=== PATIENT | female | born 1935 | race Caucasian/White ===

== ENCOUNTER 2017-06-15 00:10 | Emergency (ER) | payer MEDICARE, BC ==
[2017-06-15 02:14] LABS: ALANINE AMINOTRANSFERASE 24 U/L (9-52); ALBUMIN 3.9 g/dL (3.5-5.0); ALKALINE PHOSPHATASE 98 U/L (38-126); ANION GAP 13 (5-19); ASPARTATE AMINO TRANSFERASE 19 U/L (14-36); BILIRUBIN,DIRECT 0.2 mg/dL (0.0-0.4); BILIRUBIN,TOTAL 0.6 mg/dL (0.2-1.3); BLOOD UREA NITROGEN 14 mg/dL (7-20); CALCIUM 9.4 mg/dL (8.4-10.2); CARBON DIOXIDE 27 mmol/L (22-30); CHLORIDE 102 mmol/L (98-107); CREATININE RESULT 0.69 mg/dL (0.52-1.25); GLUCOSE 105 mg/dL (75-110); LIPASE 133.5 U/L (23-300); POTASSIUM 3.9 mmol/L (3.6-5.0); TOTAL PROTEIN 6.7 g/dL (6.3-8.2)
[2017-06-15 02:18] LABS: ABSOLUTE BASOPHILS # (AUTO) 0.1 10^3/uL (0.0-0.2); ABSOLUTE EOSINOPHILS # (AUTO) 0.3 10^3/uL (0.0-0.6); ABSOLUTE LYMPHOCYTES (AUTO) 2.1 10^3/uL (0.5-4.7); ABSOLUTE MONOCYTES (AUTO) 0.6 10^3/uL (0.1-1.4); ABSOLUTE NEUT (AUTO) 4.6 10^3/uL (1.7-8.2); BASOPHILS % (AUTO) 0.7 % (0-2); EOSINOPHILS % (AUTO) 3.5 % (0-6); HEMATOCRIT 41.9 % (36.0-47.0); HEMOGLOBIN 14.8 g/dL (12.0-15.5); HGB HCT DIFFERENCE 2.5; LYMPHOCYTES % (AUTO) 27.3 % (13-45); MEAN CORPUSCULAR HEMOGLOBIN 31.5 pg (27.0-33.4); MEAN CORPUSCULAR HGB CONC 35.2 g/dL (32.0-36.0); MEAN CORPUSCULAR VOLUME 90 fl (80-97); MONOCYTES % (AUTO) 7.9 % (3-13); RED BLOOD COUNT 4.69 10^6/uL (3.72-5.28); RED CELL DISTRIBUTION WIDTH 13.1 % (11.5-14.0); SEGMENTED NEUTROPHILS % (AUTO) 60.6 % (42-78); WHITE BLOOD COUNT 7.5 10^3/uL (4.0-10.5)
[2017-06-15 02:29] LABS: APPEARANCE,URINE SLIGHTLY-CLOUDY; BILIRUBIN,URINE NEGATIVE (NEGATIVE); GLUCOSE, URINE NEGATIVE (NEGATIVE); KETONES,URINE NEGATIVE (NEGATIVE); LEUKOCYTE ESTERASE,URINE MODERATE (NEGATIVE); NITRITE,URINE NEGATIVE (NEGATIVE); PROTEIN,URINE NEGATIVE (NEGATIVE); URINE SPECIFIC GRAVITY 1.012; UROBILINOGEN,URINE NEGATIVE mg/dL (<2.0)
--- NOTE | 2017-06-15 03:07 | ER Document Report ---
ED GI/ - General Chief Complaint: Abdominal Pain Stated Complaint: ABDOMINAL PAIN Time Seen by Provider: 06/15/17 02:27 Notes: Patient is an 82-year-old female comes emergency department for chief complaint of pain in her abdomen on the left side, symptoms started earlier today, she states the pain has become constant. She denies nausea, vomiting, dysuria, flank pain, injury. She is here with her family members. She has had a hysterectomy and sees partial), cholecystectomy, hip surgeries. TRAVEL OUTSIDE OF THE [place] IN LAST 30 DAYS: No - Related Data Allergies/Adverse Reactions: Iodinated Contrast- Oral and IV Dye Allergy (Severe, Verified 07/28/16 15:13) Angioedema metformin [Metformin] Allergy (Severe, Verified 07/28/16 15:13) Diarrhea Utfegyv-Tvo-Vzo Reductase Inhibitor Adverse Reaction (Intermediate, Verified 10/13 08:17) Stiffness in joints Past Medical History - General Information source: Patient, Relative - Social History Smoking Status: Never Smoker Frequency of alcohol use: None Drug Abuse: None Lives with: Family Family History: Reviewed & Not Pertinent, Other Patient has suicidal ideation: No Patient has homicidal ideation: No - Past Medical History Cardiac Medical History: Reports: Hx Congestive Heart Failure, Hx Coronary Artery Disease, Hx DVT - 1997, Hx Hypertension Denies: Hx Pulmonary Embolism Pulmonary Medical History: Denies: Hx Asthma, Hx COPD Neurological Medical History: Denies: Hx Seizures Endocrine Medical History: Reports: Hx Hypothyroidism. Denies: Hx Diabetes Mellitus Type 1, Hx Diabetes Mellitus Type 2, Hx Hyperthyroidism Renal/ Medical History: Denies: Hx Peritoneal Dialysis GI Medical History: Denies: Hx Cirrhosis, Hx Gastroesophageal Reflux Disease, Hx Hepatitis Musculoskeltal Medical History: Reports Hx Arthritis Skin Medical History: Denies Hx Eczema, Denies Hx Psoriasis Psychiatric Medical History: Denies: Hx Depression Infectious Medical History: Denies: Hx Hepatitis Past Surgical History: Reports: Hx Cardiac Catheterization - x4-5 years ago- [place] and "recently" @ [facility], Hx Cholecystectomy, Hx Coronary Artery Bypass Graft - March 2015, [facility], Hx Coronary Stent - 4 total; last March 2015, around the time of her 3 vessel cabg, Hx Hysterectomy, Hx Orthopedic Surgery - bilat hip replacement - Immunizations Hx Diphtheria, Pertussis, Tetanus Vaccination: Yes Hx Pneumococcal Vaccination: 08/28/10 Review of Systems - Review of Systems Constitutional: No symptoms reported EENT: No symptoms reported Cardiovascular: No symptoms reported Respiratory: No symptoms reported Gastrointestinal: See HPI Genitourinary: No symptoms reported Female Genitourinary: No symptoms reported Musculoskeletal: No symptoms reported Skin: No symptoms reported Hematologic/Lymphatic: No symptoms reported Neurological/Psychological: No symptoms reported Physical Exam - Vital signs Vitals: Temp Pulse Resp BP Pulse Ox 97.9 F 57 L 20 153/73 H 97 06/15/17 00:13 06/15/17 00:13 06/15/17 00:13 06/15/17 00:13 06/15/17 00:13 Interpretation: Normal - General General appearance: Appears well, Alert In distress: None - HEENT Head: Normocephalic, Atraumatic Eyes: Normal Pupils: PERRL - Respiratory Respiratory status: No respiratory distress Chest status: Nontender Breath sounds: Normal Chest palpation: Normal - Cardiovascular Rhythm: Regular Heart sounds: Normal auscultation, S1 appreciated, S2 appreciated Murmur: Yes - Abdominal Inspection: Normal Distension: No distension Bowel sounds: Normal Tenderness: Tender - Patient specifically tender in the left lower quadrant which is reproducible, no guarding, no rigidity, no rebound tenderness, otherwise unremarkable abdomen Organomegaly: No organomegaly - Back Back: Normal, Nontender - Extremities General upper extremity: Normal inspection, Nontender, Normal color, Normal ROM , Normal temperature General lower extremity: Normal inspection, Nontender, Normal color, Normal ROM , Normal temperature, Normal weight bearing. No: Mirta's sign - Neurological Neuro grossly intact: Yes Cognition: Normal Orientation: AAOx4 [place] Coma Scale Eye Opening: Spontaneous Nolan Coma Scale Verbal: Oriented Nolan Coma Scale Motor: Obeys Commands Nolan Coma Scale Total: 15 Speech: Normal Motor strength normal: LUE, RUE, LLE, RLE Sensory: Normal - Psychological Associated symptoms: Normal affect, Normal mood - Skin Skin Temperature: Warm Skin Moisture: Dry Skin Color: Normal Course - Re-evaluation Re-evalutation: Patient does have mild left lower quadrant tenderness on examination although she is nontoxic in appearance, well-appearing, unremarkable vital signs, unremarkable physical exam otherwise. CBC unremarkable, chemistry unremarkable , urinalysis shows moderate leukocyte esterase with a few white blood cells but is otherwise unremarkable. Patient's presentation is suggestive of diverticulitis, CAT scan was performed to rule out abscess, perforation, or other etiology, unfortunately patient is allergic to all contrast so these could not be used. Incidental finding of right ovarian abnormality which has progressed, I discussed this with patient and family in detail, patient will be placed on treatment for suspected early diverticulitis, discussed treatment for this, follow-up for this, and return precautions for this in detail. Patient and family state understanding and agreement. - Vital Signs Vital signs: Temp Pulse Resp BP Pulse Ox 98.0 F 62 18 134/76 H 99 06/15/17 04:34 06/15/17 04:34 06/15/17 04:34 06/15/17 04:34 06/15/17 04:34 - Laboratory Result Diagrams: 06/15/17 01:50 06/15/17 01:50 Laboratory results interpreted by me: 06/15/17 02:05 Ur Leukocyte Esterase MODERATE H Discharge - Discharge Clinical Impression: Left lower quadrant pain Condition: Stable Disposition: HOME, SELF-CARE Additional Instructions: Your examination and location of pain are consistent with diverticulitis, take the antibiotics as prescribed, take the Mcdermott if needed for pain, if you do take this also take the Colace stool softener to avoid constipation. Please follow-up in the next few days with your primary care provider for recheck. Return to the emergency department if you worsen in anyway including vomiting, fever, bloody stools, increased pain, etc. Your CAT scan incidentally also shows increase in size of an irregular possible mass at the right ovary area, please follow-up very closely with the [facility] for additional management, this could be cancer and delay in follow-up could result in a metastasis (spread). See referral listed. Prescriptions: Ciprofloxacin HCl [Cipro 500 mg Tablet] 500 mg PO BID #14 tablet Docusate Sodium [Colace 100 mg Capsule] 100 mg PO DAILY #30 capsule Hydrocodone/Acetaminophen [Mcdermott 5-325 mg Tablet] 0.5 - 1 tab PO ASDIR #12 tablet Metronidazole [Flagyl 500 mg Tablet] 500 mg PO TID #21 tablet Referrals: JOHN VANESSA MD [Primary Care Provider] - Follow up as needed
--- NOTE | 2017-06-15 03:30 | RADIOLOGY REPORT (SQ) ---
EXAM DESCRIPTION: CT ABD/PELVIS NO ORAL OR IV COMPLETED DATE/TIME: 06/15/2017 3:11 am REASON FOR STUDY: LLQ pain COMPARISON: CT abdomen and pelvis 08/24/2011, 01/26/2009. MRI abdomen 06/09/2011. TECHNIQUE: CT scan of the abdomen and pelvis performed without intravenous or oral contrast. Images reviewed with lung, soft tissue, and bone windows. Reconstructed coronal and sagittal MPR images revi ewed. All images stored on PACS. All CT scanners at this facility use dose modulation, iterative reconstruction, and/or weight based d osing when appropriate to reduce radiation dose to as low as reasonably achievable (ALARA). [facility]: Dose Right [facility]: CareDose [facility]: Dose Right [facility]: Teradose 4D [facility]: Smart Technologies RADIATION DOSE: Up-to-date CT equipment and radiation dose reduction techniques were employed. CTDIv ol: 25.5 mGy. DLP: 1250 mGy-cm.mGy. LIMITATIONS: Streak artifact from the bilateral hip prosthesis. FINDINGS: LOWER CHEST: Mild bibasilar atelectasis. The patient is status post open heart surgery. NON-CONTRASTED LIVER, SPLEEN, ADRENALS: Evaluation limited by lack of IV contrast. No identified sign ificant masses. Redemonstration of coarse calcifications at the periphery of the right hepatic lobe. PANCREAS: No peripancreatic inflammatory changes. GALLBLADDER: Surgically absent. RIGHT KIDNEY AND URETER: No significant calcifications. No hydronephrosis or hydroureter. LEFT KIDNEY AND URETER: No significant calcifications. No hydronephrosis or hydroureter. AORTA AND RETROPERITONEUM: Atherosclerotic calcifications within the abdominal aorta and its branches . No abdominal aortic aneurysm. No retroperitoneal masses or hemorrhage. BOWEL AND PERITONEAL CAVITY: No dilated bowel loops or focal inflammatory changes. No free fluid or free air. APPENDIX: Not visualized. PELVIS, BLADDER, AND ABDOMINAL WALL:The pelvis is partially obscured by streak artifact from the bila teral hip prosthesis. The urinary bladder is decompressed. Cystic lesion at the right adnexa is cindy suring 5.3 x 3.5 cm, previously measured 4.6 cm. BONES: Multilevel degenerative changes in the spine. The patient is status post bilateral total hip arthroplasties. IMPRESSION: Interval increase in the cystic lesion at the right adnexa, ovarian neoplasm cannot be e xcluded. Otherwise, no acute findings on unenhanced CT. COMMENT: Quality ID # [id number]: Final reports with documentation of one or more dose reduction techniques (e.g., Automated exposure control, adjustment of the mA and/or kV according to patient size, use of iterative reconstruction technique) TECHNICAL DOCUMENTATION: JOB ID: [id number] 2010 [employer]- All Rights Reserved
[2017-06-15] MEDS ORDERED: METRONIDAZOLE 500 MG TABLET PO ONE (04:10)
[2017-06-15] MEDS ORDERED: CIPROFLOXACIN HCL 500 MG TABLET PO ONE (04:10)
[2017-06-15] MEDS ORDERED: HYDROCODONE/ACETAMINOPHEN 5-325 MG TABLET PO ONE (04:10)
[2017-06-15] MEDS ORDERED: ONDANSETRON 4 MG TAB.RAPDIS PO ONE (04:10)
[2017-06-15 04:35] VITALS: BP 134/76
== END 2017-06-15 04:35 | disposition home or self-care (01) ==
LOC: ER 00:10
DX: R10.32 Left lower quadrant pain (principal); Z90.710 Acquired absence of both cervix and uterus; Z90.49 Acquired absence of other specified parts of digestive tract
CPT/HCPCS: 99284; 36415; 83690; 85025; 80053; 81001; 74176; A9270 ×4; S0119

== ENCOUNTER 2017-08-07 17:14 | Emergency (ER) | payer MEDICARE, BC ==
[2017-08-07] MEDS ORDERED: SILVER NITRATE APPLICATOR 1 APPLIC STICK..EA. 10/PACKAGE TOP ONE ×2 (18:56)
--- NOTE | 2017-08-07 19:02 | ER Document Report ---
ED General - General Chief Complaint: Nose Bleed Stated Complaint: NOSE BLEED Time Seen by Provider: 08/07/17 17:22 Mode of Arrival: Medic Information source: Patient, Relative TRAVEL OUTSIDE OF THE [place] IN LAST 30 DAYS: No - HPI Patient complains to provider of: Nosebleed noted Onset: Just prior to arrival Onset/Duration: Sudden Quality of pain: No pain Associated symptoms: None Exacerbated by: Denies Relieved by: Denies Similar symptoms previously: No Recently seen / treated by doctor: No Notes: Patient states she had a sudden onset of bleeding from her left naris. She states she is on Plavix. Trauma to the area. Spontaneously by the time patient got to the emergency department. - Related Data Allergies/Adverse Reactions: Iodinated Contrast- Oral and IV Dye Allergy (Severe, Verified 07/28/16 15:13) Angioedema metformin [Metformin] Allergy (Severe, Verified 07/28/16 15:13) Diarrhea Nrkgjxe-Awh-Ico Reductase Inhibitor Adverse Reaction (Intermediate, Verified 10/13 08:17) Stiffness in joints Past Medical History - General Information source: Patient, Relative - Social History Smoking Status: Unknown if Ever Smoked Frequency of alcohol use: None Drug Abuse: None Lives with: Family Family History: Reviewed & Not Pertinent, Other Patient has suicidal ideation: No Patient has homicidal ideation: No - Past Medical History Cardiac Medical History: Reports: Hx Congestive Heart Failure, Hx Coronary Artery Disease, Hx DVT - 1997, Hx Hypertension Denies: Hx Pulmonary Embolism Pulmonary Medical History: Denies: Hx Asthma, Hx COPD Neurological Medical History: Denies: Hx Seizures Endocrine Medical History: Reports: Hx Hypothyroidism. Denies: Hx Diabetes Mellitus Type 1, Hx Diabetes Mellitus Type 2, Hx Hyperthyroidism Renal/ Medical History: Denies: Hx Peritoneal Dialysis GI Medical History: Denies: Hx Cirrhosis, Hx Gastroesophageal Reflux Disease, Hx Hepatitis Musculoskeltal Medical History: Reports Hx Arthritis Skin Medical History: Denies Hx Eczema, Denies Hx Psoriasis Psychiatric Medical History: Denies: Hx Depression Infectious Medical History: Denies: Hx Hepatitis Past Surgical History: Reports: Hx Cardiac Catheterization - x4-5 years ago- [place] and "recently" @ [place], Hx Cholecystectomy, Hx Coronary Artery Bypass Graft - March 2015, [place], Hx Coronary Stent - 4 total; last March 2015, around the time of her 3 vessel cabg, Hx Hysterectomy, Hx Orthopedic Surgery - bilat hip replacement - Immunizations Hx Diphtheria, Pertussis, Tetanus Vaccination: Yes Hx Pneumococcal Vaccination: 08/28/10 Review of Systems - Review of Systems Constitutional: No symptoms reported EENT: No symptoms reported, See HPI Cardiovascular: No symptoms reported Respiratory: No symptoms reported Gastrointestinal: No symptoms reported Musculoskeletal: No symptoms reported Skin: No symptoms reported Hematologic/Lymphatic: No symptoms reported Neurological/Psychological: No symptoms reported Physical Exam - Vital signs Vitals: Pulse Ox 95 08/07/17 17:21 Interpretation: Normal - Notes Notes: PHYSICAL EXAMINATION: GENERAL: Well-appearing, well-nourished and in no acute distress. Patient sitting in bed. Her nose is not bleeding any longer. HEAD: Atraumatic, normocephalic. EYES: Pupils equal round and reactive to light, extraocular movements intact, conjunctiva are normal. ENT: Nares patent, oropharynx clear without exudates. Moist mucous membranes. There is no dried blood in her posterior pharynx. There is some dried blood around her left naris. NECK: Normal range of motion, supple without lymphadenopathy LUNGS: Breath sounds clear to auscultation bilaterally and equal. No wheezes rales or rhonchi. HEART: Regular rate and rhythm without murmurs ABDOMEN: Soft, nontender, nondistended abdomen. No guarding, no rebound. No masses appreciated. Female : deferred Musculoskeletal: Normal range of motion, no pitting or edema. No cyanosis. NEUROLOGICAL: Cranial nerves grossly intact. Normal speech, normal gait. Normal sensory, motor exams PSYCH: Normal mood, normal affect. SKIN: Warm, Dry, normal turgor, no rashes or lesions noted. Course - Re-evaluation Re-evalutation: 08/07/17 19:00 Patient continues without any bleeding in her knee years. Did do a nasal exam. Patient does have a less than 1 cm area on her left nasal septum that has some bleeding. It is very mild. - Vital Signs Vital signs: Temp Pulse Resp BP Pulse Ox 97.5 F 58 L 15 134/65 H 90 L 08/07/17 17:28 08/07/17 18:46 08/07/17 17:28 08/07/17 19:01 08/07/17 19:01 Procedures - Nosebleed Procedure Left Location: Anterior Supplies used: Other - Silver nitrate slide patient tolerated procedure. Bleeding stopped. Discharge - Discharge Clinical Impression: Nosebleed Condition: Stable Disposition: HOME, SELF-CARE Instructions: Nosebleed Instructions ([facility]) Additional Instructions: If your nose starts to bleed again, please apply direct pressure to nasal bridge. It fails to stop please present back to the emergency department. Referrals: CARLY LEACH MD [Primary Care Provider] - Follow up in 3-5 days
[2017-08-07 19:25] VITALS: BP 134/65
== END 2017-08-07 19:35 | disposition home or self-care (01) ==
LOC: ER 17:14
DX: R04.0 Epistaxis (principal); I50.9 Heart failure, unspecified; I11.0 Hypertensive heart disease with heart failure; I25.10 Atherosclerotic heart disease of native coronary artery without angina pectoris; Z79.02 Long term (current) use of antithrombotics/antiplatelets; Z86.718 Personal history of other venous thrombosis and embolism; E03.9 Hypothyroidism, unspecified; Z90.49 Acquired absence of other specified parts of digestive tract; Z95.1 Presence of aortocoronary bypass graft; Z96.643 Presence of artificial hip joint, bilateral
CPT/HCPCS: 99283

== ENCOUNTER → 2017-10-07 | Outpatient (CLI) | payer MEDICARE, BC ==
[2017-10-07 11:04] LABS: ALANINE AMINOTRANSFERASE 25 U/L (9-52); ALBUMIN 4.2 g/dL (3.5-5.0); ALKALINE PHOSPHATASE 91 U/L (38-126); ANION GAP 11 (5-19); ASPARTATE AMINO TRANSFERASE 21 U/L (14-36); BILIRUBIN,DIRECT 0.1 mg/dL (0.0-0.4); BILIRUBIN,TOTAL 0.5 mg/dL (0.2-1.3); BLOOD UREA NITROGEN 15 mg/dL (7-20); CALCIUM 10.2 mg/dL (8.4-10.2); CARBON DIOXIDE 24 mmol/L (22-30); CHLORIDE 105 mmol/L (98-107); CHOLESTEROL 230.28 mg/dL (0-200); GLUCOSE 106 mg/dL (75-110); MAGNESIUM 2.1 mg/dL (1.6-2.3); POTASSIUM 4.5 mmol/L (3.6-5.0); SODIUM 140.1 mmol/L (137-145); TOTAL PROTEIN 6.9 g/dL (6.3-8.2); TRIGLYCERIDES 164 mg/dL (<150)
[2017-10-07 11:15] LABS: DIRECT LDL 162 mg/dL (<100)
[2017-10-07 11:16] LABS: VLDL CHOLESTEROL 32.8 mg/dL (10-31)
== END ==
LOC: OD 09:57
PROVIDERS: ATTEND Internal Medicine Cardiovascular Disease
DX: E78.00 Pure hypercholesterolemia, unspecified (principal); E56.9 Vitamin deficiency, unspecified; I48.91 Unspecified atrial fibrillation; Z79.899 Other long term (current) drug therapy
CPT/HCPCS: 36415; 80048; 80061; 80076; 82306; 83735

== ENCOUNTER → 2017-11-08 | Outpatient (CLI) | payer MEDICARE, BC ==
[2017-11-08 10:35] LABS: ANION GAP 12 (5-19); BLOOD UREA NITROGEN 14 mg/dL (7-20); CARBON DIOXIDE 24 mmol/L (22-30); CHLORIDE 104 mmol/L (98-107); GLUCOSE 108 mg/dL (75-110); POTASSIUM 4.4 mmol/L (3.6-5.0)
== END ==
LOC: OD 08:52
PROVIDERS: ATTEND Internal Medicine Cardiovascular Disease
DX: I48.91 Unspecified atrial fibrillation (principal)
CPT/HCPCS: 36415; 80048

== ENCOUNTER 2018-02-05 17:01 | Observation (INO) | payer MEDICARE, BC ==
[2018-02-05] MEDS ORDERED: ASPIRIN 81 MG TABLET, CHEWABLE PO ONE (17:39)
--- NOTE | 2018-02-05 17:46 | ER Document Report ---
ED Medical Screen (RME) - General Chief Complaint: Irregular Pulse Stated Complaint: CHEST TIGHTNESS, IRREGULAR HEART BEAT Time Seen by Provider: 02/05/18 17:39 Mode of Arrival: Wheelchair Information source: Patient, Relative Notes: 82-year-old female history of 3 recent stents in 2016 presents with complaints of fluttering sensation in her chest. Patient notes a history of A. fib and is on metoprolol notes intermittent chest tightness sensation which is currently present I have greeted and performed a rapid initial assessment of this patient. A comprehensive ED assessment and evaluation of the patient, analysis of test results and completion of the medical decision making process will be conducted by additional ED providers. PHYSICAL EXAMINATION: GENERAL: Well-appearing, well-nourished and in no acute distress. HEAD: Atraumatic, normocephalic. EYES: Pupils equal round extraocular movements intact, conjunctiva are normal. ENT: Nares patent NECK: Normal range of motion LUNGS: No respiratory distress Musculoskeletal: Normal range of motion NEUROLOGICAL: Normal speech, normal gait. PSYCH: Normal mood, normal affect. SKIN: Warm, Dry, normal turgor, no rashes or lesions noted. TRAVEL OUTSIDE OF THE [place] IN LAST 30 DAYS: No - Related Data Allergies/Adverse Reactions: Iodinated Contrast- Oral and IV Dye Allergy (Severe, Verified 02/05/18 17:02) Angioedema metformin [Metformin] Allergy (Severe, Verified 02/05/18 17:02) Diarrhea Yngameo-Uev-Skc Reductase Inhibitor Adverse Reaction (Intermediate, Verified 07/15 17:02) Stiffness in joints Past Medical History - Past Medical History Cardiac Medical History: Reports: Hx Congestive Heart Failure, Hx Coronary Artery Disease, Hx DVT - 1997, Hx Hypertension Denies: Hx Pulmonary Embolism Pulmonary Medical History: Denies: Hx Asthma, Hx COPD Neurological Medical History: Denies: Hx Seizures Endocrine Medical History: Reports: Hx Hypothyroidism. Denies: Hx Diabetes Mellitus Type 1, Hx Diabetes Mellitus Type 2, Hx Hyperthyroidism Renal/ Medical History: Denies: Hx Peritoneal Dialysis GI Medical History: Denies: Hx Cirrhosis, Hx Gastroesophageal Reflux Disease, Hx Hepatitis Musculoskeltal Medical History: Reports Hx Arthritis Skin Medical History: Denies Hx Eczema, Denies Hx Psoriasis Psychiatric Medical History: Denies: Hx Depression Infectious Medical History: Denies: Hx Hepatitis Past Surgical History: Reports: Hx Cardiac Catheterization - x4-5 years ago- [place] and "recently" @ [facility], Hx Cholecystectomy, Hx Coronary Artery Bypass Graft - March 2015, [facility], Hx Coronary Stent - 4 total; last 2March 2015, around the time of her 3 vessel cabg, Hx Hysterectomy, Hx Orthopedic Surgery - bilat hip replacement - Immunizations Hx Diphtheria, Pertussis, Tetanus Vaccination: Yes Physical Exam - Vital signs Vitals: Temp Pulse Resp BP Pulse Ox 99.5 F 57 L 18 126/54 H 95 02/05/18 17:15 02/05/18 17:15 02/05/18 17:15 02/05/18 17:15 02/05/18 17:15 Course - Vital Signs Vital signs: Temp Pulse Resp BP Pulse Ox 99.5 F 57 L 18 126/54 H 95 02/05/18 17:15 02/05/18 17:15 02/05/18 17:15 02/05/18 17:15 02/05/18 17:15 Doctor's Discharge - Discharge Referrals: FERNANDO BURR MD [Primary Care Provider] - Follow up as needed
--- NOTE | 2018-02-05 18:21 | RADIOLOGY REPORT (SQ) ---
EXAM DESCRIPTION: CHEST SINGLE VIEW COMPLETED DATE/TIME: 02/05/2018 6:05 pm REASON FOR STUDY: chest pain COMPARISON: 07/28/2016 EXAM PARAMETERS: NUMBER OF VIEWS: One view. TECHNIQUE: Single frontal radiographic view of the chest acquired. RADIATION DOSE: NA LIMITATIONS: None. FINDINGS: LUNGS AND PLEURA: No opacities, masses or pneumothorax. No pleural effusion. MEDIASTINUM AND HILAR STRUCTURES: No masses. Contour normal. HEART AND VASCULAR STRUCTURES: Heart normal in size. Normal vasculature. BONES: No acute findings. HARDWARE: Sternotomy wires. OTHER: No other significant finding. IMPRESSION: NO ACUTE RADIOGRAPHIC FINDING IN THE CHEST. TECHNICAL DOCUMENTATION: JOB ID: [id number] [employer]- All Rights Reserved Reading location - IP/workstation name: [email or web address]
--- NOTE | 2018-02-05 18:25 | EKG REPORT ---
SEVERITY:- ABNORMAL ECG - SINUS RHYTHM NONSPECIFIC INTRAVENTRICULAR CONDUCTION DELAY ANTERIOR INFARCT, AGE INDETERMINATE : Confirmed by: Galindo Rothman MD 05-Feb-2018 18:23:45
--- NOTE | 2018-02-05 19:53 | ER Document Report ---
ED Cardiac - General Chief Complaint: Irregular Pulse Stated Complaint: CHEST TIGHTNESS, IRREGULAR HEART BEAT Time Seen by Provider: 02/05/18 17:39 Mode of Arrival: Wheelchair Information source: Patient, Relative Notes: 82-year-old female presents here emergency department with a 3-day history of palpitations. Patient has a history of atrial fibrillation, coronary artery disease, hypertension, hypothyroidism. Patient states that she has some intermittent chest pressure with the palpitations over the last 3 days. She contacted her cd technician today, Dr. Fernando Hamilton and was told to go to the emergency department for an evaluation. Patient does have a history of coronary artery disease with CABG in 2015 and 3 stents. Patient does not think that she has not had a stress test or cath since then. Patient denies any shortness of breath, nausea, vomiting, diaphoresis. Patient is on Plavix. She also takes metoprolol. TRAVEL OUTSIDE OF THE [place] IN LAST 30 DAYS: No - HPI Patient complains to provider of: Palpitations Was the onset of pain: Gradual When did pain begin: 3 days ago Is the pain a: New problem Quality of pain: None Chest pain radiation location: None Severity now: Mild Severity at worst: Mild Pain level currently: 1 Chest pain precipitating factors: At Rest Cardiac risk factors: Hypertension Positive cardiac history: Yes Associated symptoms: None Exacerbated by: Denies Relieved by: Nothing Similar symptoms previously: Yes Recently seen / treated by doctor: No - Related Data Allergies/Adverse Reactions: Iodinated Contrast- Oral and IV Dye Allergy (Severe, Verified 02/05/18 17:02) Angioedema metformin [Metformin] Allergy (Severe, Verified 02/05/18 17:02) Diarrhea [id number]-Hfm Reductase Inhibitor Adverse Reaction (Intermediate, Verified 07/15 17:02) Stiffness in joints Past Medical History - General Information source: Patient, Relative - Social History Smoking Status: Never Smoker Chew tobacco use (# tins/day): No Frequency of alcohol use: None Drug Abuse: None Family History: Reviewed & Not Pertinent, Other Patient has suicidal ideation: No Patient has homicidal ideation: No - Past Medical History Cardiac Medical History: Reports: Hx Congestive Heart Failure, Hx Coronary Artery Disease, Hx DVT - 1998, Hx Hypertension Denies: Hx Pulmonary Embolism Pulmonary Medical History: Denies: Hx Asthma, Hx COPD Neurological Medical History: Denies: Hx Seizures Endocrine Medical History: Reports: Hx Hypothyroidism. Denies: Hx Diabetes Mellitus Type 1, Hx Diabetes Mellitus Type 2, Hx Hyperthyroidism Renal/ Medical History: Denies: Hx Peritoneal Dialysis GI Medical History: Denies: Hx Cirrhosis, Hx Gastroesophageal Reflux Disease, Hx Hepatitis Musculoskeltal Medical History: Reports Hx Arthritis Skin Medical History: Denies Hx Eczema, Denies Hx Psoriasis Psychiatric Medical History: Denies: Hx Depression Infectious Medical History: Denies: Hx Hepatitis Past Surgical History: Reports: Hx Cardiac Catheterization - x4-5 years ago- [place] and "recently" @ [facility], Cardiac Surgery - 3 stents placed, Hx Cholecystectomy, Hx Coronary Artery Bypass Graft - March 2015, [facility], Coronary Stent - 4 total; last March 2015, around the time of her 3 vessel cabg, Hx Hysterectomy, Hx Orthopedic Surgery - bilat hip replacement - Immunizations Hx Diphtheria, Pertussis, Tetanus Vaccination: Yes Hx Pneumococcal Vaccination: 08/28/10 Review of Systems - Review of Systems Constitutional: No symptoms reported EENT: No symptoms reported Cardiovascular: Palpitations Respiratory: No symptoms reported Gastrointestinal: No symptoms reported Genitourinary: No symptoms reported Musculoskeletal: No symptoms reported Skin: No symptoms reported Hematologic/Lymphatic: No symptoms reported Neurological/Psychological: No symptoms reported -: Yes All other systems reviewed and negative Physical Exam - Vital signs Vitals: Temp Pulse Resp BP Pulse Ox 99.5 F 57 L 18 126/54 H 95 02/05/18 17:15 02/05/18 17:15 02/05/18 17:15 02/05/18 17:15 02/05/18 17:15 Interpretation: Bradycardic - Notes Notes: PHYSICAL EXAMINATION: GENERAL: Well-appearing, well-nourished and in no acute distress. HEAD: Atraumatic, normocephalic. EYES: Pupils equal round and reactive to light, extraocular movements intact, conjunctiva are normal. ENT: Nares patent, oropharynx clear without exudates. Moist mucous membranes. NECK: Normal range of motion, supple without lymphadenopathy LUNGS: Breath sounds clear to auscultation bilaterally and equal. No wheezes rales or rhonchi. HEART: Bradycardic. No murmurs. Normal rhythm ABDOMEN: Soft, nontender, nondistended abdomen. No guarding, no rebound. No masses appreciated. Female : deferred Musculoskeletal: Normal range of motion, no pitting or edema. No cyanosis. NEUROLOGICAL: Cranial nerves grossly intact. Normal speech, normal gait. Normal sensory, motor exams PSYCH: Normal mood, normal affect. SKIN: Warm, Dry, normal turgor, no rashes or lesions noted. Course - Re-evaluation Re-evalutation: 02/05/18 21:38 Labs and imaging obtained. They are within normal limits. Patient was given nitro for her chest pain. This completely relieved her pain. She is currently asymptomatic in the emergency department. She does remain bradycardic. I will admit the patient to the hospitalist, Dr. Fitzgerald. - Vital Signs Vital signs: Temp Pulse Resp BP Pulse Ox 99.5 F 57 L 15 115/68 89 L 02/05/18 17:15 02/05/18 17:15 02/05/18 21:01 02/05/18 21:01 02/05/18 21:01 - Laboratory Result Diagrams: 02/05/18 19:45 02/05/18 19:45 - EKG Interpretation by In EKG shows normal: Sinus rhythm Rate: Normal Rhythm: NSR - Ventricular rate 56, NJ interval 192, QRS duration 112, QTc 425, normal sinus rhythm. No ischemic changes. Discharge - Discharge Clinical Impression: Heart palpitations Chest pain Qualifiers: Chest pain type: unspecified Qualified Code(s): R07.9 - Chest pain, unspecified Condition: Stable Disposition: ADMITTED OBSERVATION Admitting Provider: Hospitalist Unit Admitted: Telemetry Referrals: FERNANDO BURR MD [EMERITUS] - Follow up as needed
[2018-02-05 19:59] LABS: ABSOLUTE EOSINOPHILS # (AUTO) 0.4 10^3/uL (0.0-0.6); ABSOLUTE LYMPHOCYTES (AUTO) 2.5 10^3/uL (0.5-4.7); ABSOLUTE MONOCYTES (AUTO) 0.7 10^3/uL (0.1-1.4); ABSOLUTE NEUT (AUTO) 4.4 10^3/uL (1.7-8.2); BASOPHILS % (AUTO) 0.5 % (0-2); EOSINOPHILS % (AUTO) 4.8 % (0-6); HEMATOCRIT 42.5 % (36.0-47.0); HEMOGLOBIN 14.6 g/dL (12.0-15.5); LYMPHOCYTES % (AUTO) 31.8 % (13-45); MEAN CORPUSCULAR HEMOGLOBIN 31.3 pg (27.0-33.4); MEAN CORPUSCULAR HGB CONC 34.4 g/dL (32.0-36.0); MEAN CORPUSCULAR VOLUME 91 fl (80-97); MONOCYTES % (AUTO) 8.6 % (3-13); PLATELET COUNT 223 10^3/uL (150-450); RED BLOOD COUNT 4.68 10^6/uL (3.72-5.28); RED CELL DISTRIBUTION WIDTH 13.3 % (11.5-14.0); SEGMENTED NEUTROPHILS % (AUTO) 54.3 % (42-78); TOTAL CELLS COUNTED % (AUTO) 100 %
[2018-02-05] MEDS ORDERED: NITROGLYCERIN 0.4 MG/TAB 25 TAB/BOTTLE SL PRN (20:05)
[2018-02-05 20:22] LABS: ALANINE AMINOTRANSFERASE 25 U/L (9-52); ALBUMIN 4.2 g/dL (3.5-5.0); ALKALINE PHOSPHATASE 91 U/L (38-126); ANION GAP 11 (5-19); ASPARTATE AMINO TRANSFERASE 25 U/L (14-36); BILIRUBIN,DIRECT 0.3 mg/dL (0.0-0.4); BILIRUBIN,TOTAL 0.3 mg/dL (0.2-1.3); BLOOD UREA NITROGEN 16 mg/dL (7-20); CALCIUM 9.9 mg/dL (8.4-10.2); CARBON DIOXIDE 27 mmol/L (22-30); CHLORIDE 104 mmol/L (98-107); CREATINE KINASE 48 U/L (30-135); GLUCOSE 96 mg/dL (75-110); POTASSIUM 4.2 mmol/L (3.6-5.0); SODIUM 141.6 mmol/L (137-145); TOTAL PROTEIN 7.4 g/dL (6.3-8.2)
[2018-02-05 20:30] LABS: CREATINE KINASE MB 0.33 ng/mL (<4.55)
[2018-02-05 20:35] LABS: TROPONIN I < 0.012 ng/mL
[2018-02-05 22:06] LABS: CREATINE KINASE MB 0.29 ng/mL (<4.55)
[2018-02-05 22:07] LABS: TROPONIN I < 0.012 ng/mL
[2018-02-06] MEDS ORDERED: TRAMADOL HCL 50 MG TABLET PO ONE (04:37)
--- NOTE | 2018-02-06 04:56 | PDOC H&P ---
History of Present Illness Admission Date/PCP: 02/05/18 21:51 CARLY LEACH MD Patient complains of: Bradycardia History of Present Illness: CLAUDIA DOMINGUEZ is a 82 year old female with a history of coronary artery disease status post coronary artery bypass graft and subsequent stenting x3, hypertension and diabetes. Patient presents with approximately 48 hours of lightheadedness, chest pressure, and bradycardia of 40 by home blood pressure monitor. In the emergency room she is found to have bradycardia in the 40s but asymptomatic. She is referred to the hospitalist for admission. An evaluation of her record she is presented similarly and resolved after reduction in metoprolol dose. Past Medical History Cardiac Medical History: Reports: Congestive Heart Failure, Coronary Artery Disease, DVT - 1997, Hypertension Denies: Pulmonary Embolism Pulmonary Medical History: Denies: Asthma, Chronic Obstructive Pulmonary Disease (COPD) Neurological Medical History: Denies: Seizures Endocrine Medical History: Reports: Hypothyroidism Denies: Diabetes Mellitus Type 1, Diabetes Mellitus Type 2, Hyperthyroidism GI Medical History: Denies: Cirrhosis, Gastroesophageal Reflux Disease, Hepatitis Musculoskeltal Medical History: Reports: Arthritis Skin Medical History: Denies: Eczema, Psoriasis Psychiatric Medical History: Denies: Depression Past Surgical History Past Surgical History: Reports: Cardiac Catheterization - x4-5 years ago- [place] and "recently" @ [place], Cholecystectomy, Coronary Artery Bypass Graft - March 2015, [facility], Coronary Stent - 4 total; last March 2015, around the time of her 3 vessel cabg, Hysterectomy, Orthopedic Surgery - bilat hip replacement Social History Information Source: Patient Lives with: Family Smoking Status: Never Smoker Frequency of Alcohol Use: None Hx Recreational Drug Use: No Drugs: None Hx Prescription Drug Abuse: No - Advance Directive Resuscitation Status: Full Code Family History Family History: Reviewed & Not Pertinent, Other Parental Family History Reviewed: Yes Children Family History Reviewed: Yes Sibling(s) Family History Reviewed.: Yes Medication/Allergy Home Medications: Aspirin [Aspirin 81 mg Chewable Tablet] 81 mg PO DAILY 05/28/15 Folic Acid 0.8 mg PO DAILY 05/28/15 Lorazepam [Ativan 0.5 mg Tablet] 0.5 mg PO QHS PRN 05/28/15 [place]-3 Fatty Acids/Fish Oil [Fish Oil 1,000 mg Capsule] 6 each PO DAILY Tramadol HCl [Ultram] 50 mg PO TID PRN 05/28/15 Hydrochlorothiazide [Hydrodiuril 25 mg Tablet] 25 mg PO DAILY #0 tablet Metoprolol Succinate [Toprol Xl 25 mg Tab.sr] 25 mg PO DAILY #30 tab.sr.24h 11/09 Cholecalciferol (Vitamin D3) [D3-2000] 5,000 unit PO DAILY 07/28/16 Levothyroxine Sodium [Synthroid 0.1 mg Tablet] 112 mcg PO DAILY 07/28/16 Potassium Chloride [Klor-Con 10 Meq Tablet.sa] 10 meq PO DAILY 07/28/16 Clopidogrel Bisulfate [Plavix 75 mg Tablet] 75 mg PO DAILY 02/06/18 Losartan Potassium 25 mg PO DAILY 02/06/18 Allergies/Adverse Reactions: Iodinated Contrast- Oral and IV Dye Allergy (Severe, Verified 02/05/18 17:02) Angioedema metformin [Metformin] Allergy (Severe, Verified 02/05/18 17:02) Diarrhea Caqdoyq-Pvp-Gqb Reductase Inhibitor Adverse Reaction (Intermediate, Verified 07/15 17:02) Stiffness in joints Review of Systems Constitutional: ABSENT: chills, fever(s), headache(s), weight gain, weight loss Eyes: ABSENT: visual disturbances Ears: ABSENT: hearing changes Cardiovascular: ABSENT: chest pain, dyspnea on exertion, edema, orthropnea, palpitations Respiratory: ABSENT: cough, hemoptysis Gastrointestinal: ABSENT: abdominal pain, constipation, diarrhea, hematemesis, hematochezia, nausea, vomiting Genitourinary: ABSENT: dysuria, hematuria Musculoskeletal: ABSENT: joint swelling Integumentary: ABSENT: rash, wounds Neurological: ABSENT: abnormal gait, abnormal speech, confusion, dizziness, focal weakness, syncope Psychiatric: ABSENT: anxiety, depression, homidical ideation, suicidal ideation Endocrine: ABSENT: cold intolerance, heat intolerance, polydipsia, polyuria Hematologic/Lymphatic: ABSENT: easy bleeding, easy bruising Physical Exam Vital Signs: Temp Pulse Resp BP Pulse Ox 99.5 F 57 L 11 L 128/53 H 94 02/05/18 17:15 02/05/18 17:15 02/06/18 04:01 02/06/18 04:01 02/06/18 04:01 General appearance: PRESENT: no acute distress, well-developed, well-nourished Head exam: PRESENT: atraumatic, normocephalic Eye exam: PRESENT: conjunctiva pink, EOMI, PERRLA. ABSENT: scleral icterus Ear exam: PRESENT: normal external ear exam Mouth exam: PRESENT: moist, tongue midline Neck exam: ABSENT: carotid bruit, JVD, lymphadenopathy, thyromegaly Respiratory exam: PRESENT: clear to auscultation sharon. ABSENT: rales, rhonchi, wheezes Cardiovascular exam: PRESENT: bradycardia. ABSENT: diastolic murmur, rubs, systolic murmur Pulses: PRESENT: normal dorsalis pedis pul Vascular exam: PRESENT: normal capillary refill GI/Abdominal exam: PRESENT: normal bowel sounds, soft. ABSENT: distended, guarding, mass, organolmegaly, rebound, tenderness Rectal exam: PRESENT: deferred Extremities exam: PRESENT: full ROM. ABSENT: calf tenderness, clubbing, pedal edema Neurological exam: PRESENT: alert, awake, oriented to person, oriented to place , oriented to time, oriented to situation, CN II-XII grossly intact. ABSENT: motor sensory deficit Psychiatric exam: PRESENT: appropriate affect, normal mood. ABSENT: homicidal ideation, suicidal ideation Skin exam: PRESENT: dry, intact, warm. ABSENT: cyanosis, rash Results Impressions: Chest X-Ray 02/05/18 17:39 IMPRESSION: NO ACUTE RADIOGRAPHIC FINDING IN THE CHEST. Assessment & Plan - Diagnosis (1) Symptomatic bradycardia Is this a current diagnosis for this admission?: Yes Plan: Telemetry admission, in review of record previous episode resolved with reduction of metoprolol dose. Continue conservative management, cycle cardiac enzymes, evaluate TSH and cardiology consult (2) Diabetes Is this a current diagnosis for this admission?: Yes Plan: Home regimen with Humalog sliding scale (3) Chest pain Qualifiers: Chest pain type: unspecified Qualified Code(s): R07.9 - Chest pain, unspecified Is this a current diagnosis for this admission?: Yes Plan: Likely secondary to #1, cardiac enzymes ordered (4) Hypothyroid Qualifiers: Is this a current diagnosis for this admission?: Yes Plan: Follow-up TSH - Time Time Spent: 50 to 70 Minutes - Inpatient Certification Medical Necessity: Need Close Monitoring Due to Risk of Patient Decompensation
[2018-02-06 05:30] LABS: ANION GAP 11 (5-19); BLOOD UREA NITROGEN 13 mg/dL (7-20); CALCIUM 9.8 mg/dL (8.4-10.2); CARBON DIOXIDE 27 mmol/L (22-30); CHLORIDE 105 mmol/L (98-107); CREATINE KINASE 47 U/L (30-135); GLUCOSE 98 mg/dL (75-110); POTASSIUM 3.8 mmol/L (3.6-5.0); SODIUM 143.3 mmol/L (137-145)
[2018-02-06 05:33] LABS: CREATINE KINASE MB 0.35 ng/mL (<4.55)
[2018-02-06 05:41] LABS: TROPONIN I < 0.012 ng/mL
[2018-02-06] MEDS ORDERED: MORPHINE SULFATE 10 MG/ML INJ IV ONE (06:12)
[2018-02-06] MEDS ORDERED: NITROGLYCERIN 0.4 MG/TAB 25 TAB/BOTTLE SL PRN (07:38)
--- NOTE | 2018-02-06 07:41 | EKG REPORT ---
SEVERITY:- ABNORMAL ECG - SINUS BRADYCARDIA ANTERIOR INFARCT, AGE INDETERMINATE : Confirmed by: Galindo Rothman MD 06-Feb-2018 07:39:56
[2018-02-06] MEDS ORDERED: TRAMADOL HCL 50 MG TABLET PO PRN (08:15)
[2018-02-06] MEDS ORDERED: LORAZEPAM 0.5 MG TABLET PO PRN (08:15)
[2018-02-06] MEDS ORDERED: (PENDING PHARMACY ID) (Folic Acid [Folic Acid] 0.8 MG) PO SCH (10:00)
[2018-02-06] MEDS ORDERED: POTASSIUM CHLORIDE 10 MEQ TABLET.SA PO SCH (10:00)
[2018-02-06] MEDS ORDERED: LEVOTHYROXINE SODIUM 0.1 MG TABLET PO SCH (10:00)
[2018-02-06] MEDS ORDERED: CLOPIDOGREL BISULFATE 75 MG TABLET PO SCH (10:00)
[2018-02-06] MEDS ORDERED: DOCUSATE SODIUM 100 MG CAPSULE PO SCH (10:00)
[2018-02-06] MEDS ORDERED: ASPIRIN 81 MG TABLET, CHEWABLE PO SCH (10:00)
[2018-02-06] MEDS ORDERED: ASPIRIN 81 MG TABLET, ENT COATED PO SCH (10:00)
[2018-02-06] MEDS ORDERED: LOSARTAN POTASSIUM 25 MG TABLET PO SCH (10:00)
[2018-02-06] MEDS ORDERED: FATTY ACIDS PO SCH (10:00)
[2018-02-06] MEDS ORDERED: FISH OIL PO SCH (10:00)
[2018-02-06] MEDS ORDERED: OMEGA PO SCH (10:00)
[2018-02-06 10:11] LABS: CREATINE KINASE MB 0.34 ng/mL (<4.55)
[2018-02-06 10:22] LABS: TROPONIN I 0.06 ng/mL
--- NOTE | 2018-02-06 10:41 | PDOC DISCHARGE SUMMARY ---
General - Admit/Disc Date/PCP Admission Date/Primary Care Provider: 02/05/18 21:51 CARLY LEACH MD Preschool Teacher'S Assistant: Dr. Rothman Discharge Date: 02/06/18 - Discharge Diagnosis (1) Bradycardia Is this a current diagnosis for this admission?: Yes Summary: Lowest heart rate recorded was 44. Patient was asymptomatic. (2) Abdominal discomfort Is this a current diagnosis for this admission?: Yes Summary: Nonspecific. Likely secondary to constipation. (3) History of congestive heart failure Is this a current diagnosis for this admission?: Yes (4) Hypertension Is this a current diagnosis for this admission?: Yes (5) CAD (coronary artery disease) Is this a current diagnosis for this admission?: Yes (6) History of coronary artery bypass graft Is this a current diagnosis for this admission?: Yes (7) Hypothyroid Is this a current diagnosis for this admission?: Yes - Additional Information Resuscitation Status: Full Code Discharge Diet: Cardiac Discharge Activity: Activity As Tolerated Home Medications: Aspirin [Aspirin 81 mg Chewable Tablet] 81 mg PO DAILY 05/28/15 Folic Acid 0.8 mg PO DAILY 05/28/15 Lorazepam [Ativan 0.5 mg Tablet] 0.5 mg PO QHS PRN 05/28/15 [place]-3 Fatty Acids/Fish Oil [Fish Oil 1,000 mg Capsule] 6 each PO DAILY Hydrochlorothiazide [Hydrodiuril 25 mg Tablet] 25 mg PO DAILY #0 tablet Cholecalciferol (Vitamin D3) [D3-2000] 5,000 unit PO DAILY 07/28/16 Levothyroxine Sodium [Synthroid 0.1 mg Tablet] 112 mcg PO DAILY 07/28/16 Potassium Chloride [Klor-Con 10 Meq Tablet.sa] 10 meq PO DAILY 07/28/16 Clopidogrel Bisulfate [Plavix 75 mg Tablet] 75 mg PO DAILY 02/06/18 Docusate Sodium [Colace 100 mg Capsule] 100 mg PO DAILY capsule 02/06/18 Losartan Potassium 25 mg PO DAILY 02/06/18 Metoprolol Succinate [Toprol Xl 25 mg Tab.sr] 50 mg PO DAILY #30 tab.sr.24h 08/14 Tramadol HCl [Ultram 50 mg Tablet] 50 mg PO Q8HP PRN tablet 02/06/18 History of Present Illness History of Present Illness: CLAUDIA DOMINGUEZ is a 82 year old female with past medical history of Coronary artery disease CABG Coronary artery stenting Hypertension Paroxysmal atrial fibrillation The patient presented with some epigastric chest discomfort and noted that her heart rate on the pulse ox was 35. In the emergency room her heart rate was in the 40s and did not drop below that. She had remained asymptomatic and was not hypotensive. The patient was evaluated by her line lead Dr. Rothman in the emergency room and he has had her on the security monitor multiple times as an outpatient and notes that she has always done well with 50 mg of Toprol. Upon careful review of the medical record and evaluation of the patient it is his impression that there is no evidence of symptomatic bradycardia or chest pain. The patient denies chest pain at present or at any point in the past 24 hours. Her blood pressure is 160/85. Heart rate is in the 50s. Dr. Rothman recommended discharge home today with no change in the Toprol-XL dose of 50 mg daily and to fit her with a security monitor and have her follow-up with them as an outpatient. Cardiac enzymes were negative. Physical Exam Vital Signs: Temp Pulse Resp BP Pulse Ox 98.0 F 64 15 116/75 95 02/06/18 06:37 02/06/18 07:00 02/06/18 08:01 02/06/18 08:00 02/06/18 08:01 General appearance: PRESENT: no acute distress Respiratory exam: PRESENT: symmetrical, unlabored. ABSENT: crackles Cardiovascular exam: PRESENT: RRR GI/Abdominal exam: PRESENT: soft. ABSENT: tenderness Neurological exam: PRESENT: alert, awake, oriented to person, oriented to place , oriented to time, oriented to situation Psychiatric exam: PRESENT: appropriate affect Results Laboratory Results: 02/06/18 04:15 02/06/18 04:15 Sodium 143.3 Potassium 3.8 Chloride 105 Carbon Dioxide 27 Anion Gap 11 BUN 13 Creatinine 0.63 Est GFR ( Amer) > 60 Est GFR (Non-Af Amer) > 60 Glucose 98 Calcium 9.8 02/06/18 02/06/18 02/06/18 04:15 04:15 09:30 Creatine Kinase 47 44 CK-MB (CK-2) 0.35 Troponin I < 0.012 02/06/18 09:30 Creatine Kinase CK-MB (CK-2) 0.34 Troponin I 0.060 Impressions: Chest X-Ray 02/05/18 17:39 IMPRESSION: NO ACUTE RADIOGRAPHIC FINDING IN THE CHEST. Qualifiers - * PATIENT BEING DISCHARGED WITH ANY OF THE FOLLOWING DIAGNOSIS: No Plan Time Spent: Greater than 30 Minutes
[2018-02-06] MEDS ORDERED: CHOLECALCIFEROL (D3) 1,000 UNIT TABLET PO ONE (11:00)
[2018-02-06] MEDS ORDERED: LEVOTHYROXINE SODIUM 0.112 MG TABLET PO ONE (11:00)
[2018-02-06 11:59] LABS: PHOSPHORUS 3.5 mg/dL (2.5-4.5)
--- NOTE | 2018-02-06 12:15 | CONSULTATION REPORT E ---
Consultation Report NAME: CLAUDIA DOMINGUEZ : 1935 AGE: 82Y DATE: 02/06/2018 ED18 A TO: FERNANDO BURR M.D. FROM: PAULIE AVERY M.D. Requesting Physician CHIEF COMPLAINT: Chest pain, heart fluttering, bradycardia. The hospitalist's dictated H and P was reviewed. Patient's initial course in the ER overnight was reviewed, in particular the rhythm strips were reviewed as were the vital signs and laboratory testing. The following additional information and opinion is offered. 1. Chest pressure. The patient's chest pressure is not in the chest. It is in the upper abdomen, in the epigastric and the right upper quadrant area. There was never any retrosternal or L precordial chest discomfort to suggest typical angina. It is however known the patient has significant CAD with drug-eluting stent in the mid LAD, total occlusion of the right coronary artery, coronary artery bypass surgery three grafts in March 2015, followed by postop drug-eluting stent to the proximal LAD, and subsequently in 2015 two drug-eluting stents were deployed in the proximal right coronary artery and a percutaneous transluminal angioplasty was done to the mid LAD because of in-stent restenosis. Since then, the patient has not had any complaints of chest pain. It is well-known that she is a vague historian. It appears that she complains mostly of abdominal pressure and tightness. There is a vague history that she has a right lower quadrant ovarian cyst that doctors are watching and no surgery is recommended and that it is painful from glkg-ry-pwpt. The initial EKG showed her to have sinus bradycardia, old anterior wall myocardial infarction and there was no acute ST changes. Serial troponin I x3 so far have been unchanged and normal. Repeat EKG, still did not show any ST deviations. On examination of the patient, the heart rhythm is regular. The blood pressure was 126/54 on admission, overnight it did go up to 168/71, followed by some readings of 102/57 one minute after the blood pressure of 168/71 was recorded. Patient continued to have vague right upper quadrant and epigastric discomfort throughout the night. Assessment: No evidence of acute coronary artery insufficiency, definitely no myocardial necrosis. Patient may be discharged from the standpoint of chest pressure, we will pursue an IV Lexiscan stress MPI in the next one week or so to look into her well documented coronary artery disease. 2. Bradycardia. The history is the patient over the weekend beset and upset with a pulse oximeter pulse reading of 50 to 40 with one lowest reading at 38 bpm one time during sleep. There was no associated dizziness although the patient complained of feeling generally unwell. Patient has been on Toprol XL 50 mg once a day. This medicine was given for prevention of angina as well as antiarrhythmic for prevention of post bypass surgery atrial fibrillation recurrence. Patient is known to have had postop A-fib in March 2015 and as a result was treated with amiodarone for a short period of time and amiodarone was discontinued on follow up with Cardiology. She was then put on metoprolol succinate (due to history of postop congestive heart failure) for A-fib prevention. Since then, the patient has been having 24-hour Holter's at approximately 6 month interval and 24-hour Holter was found to have bradycardia in sleep as low as 48 bpm, but never a heart rate of 38, the last Holter was approximately 6 months ago and another one is due. Overnight, the patient's heart rate went as low as 44 with desaturations to 87%. Her blood pressure had been up and down including as high as 168 systolic. Assessment: Alleged severe bradycardia x1 with heart rate 38 and vague complaint of skipping beats which could be PACs. So far, I have only seen one PAC on the monitor during my H and P and examination on this patient at the beside. While it is possible that her atrial fibrillation could recur after her body stores of amiodarone has dissipated, the use of Toprol XL 50 mg once a day seem to trigger a panic reaction because of the finding of heart rate of a rare 38 on pulse oximeter reading. I offered the patient the option of reducing the metoprolol from 50 mg to 25 mg just in case the heart rate of 38 is real. The down side is that her blood pressure will go higher with less beta nancy and she will have less antiarrhythmic activity to prevent A-fib going forward. Patient wants me to make the decision, so I recommended to her to continue with 50 mg since her bradycardia into the 40s during sleep is tolerable and she has never had any side effects from that, to go see her PCM and request a sleep study to rule out obstructive sleep apnea since she is obese around the waist.A 24-hour Holter will be done and the recorder should be put on her before she leaves or be discharged from the hospital. This was communicated in person to the hospitalist currently taking care of her. The patient will therefore continue with Toprol XL 50 mg once a day until the 24-Holter information becomes available. 3. Paroxysmal atrial fibrillation, this occurred in the postop phase of her coronary artery bypass surgery in March 2015, it is almost 3 years since and she has not been on amiodarone for better than 2-1/2 years. It is very likely that A Fib will return based on the history of her atrial fibrillation and unmitigated or persistent obesity, to rule out obstructive sleep apnea. She is complaining of symptoms of skipping heartbeat. A 24-hour Holter will be done to further evaluate it, if P A-fib is recurring, then she will be given antiarrhythmic drugs for rhythm control plus direct oral anticoagulants to prevent stroke. This is in the works. 4. Coronary artery disease and hypercholesterolemia. This patient is known to be allergic or intolerant to all statins which have been tried on her. Multiple attempts short of invoking an act of Congress failed to make available PCSK-9 monoclonal antibodies for treatment of hypercholesterolemia with her most recent LDL of 162 without any statins. Patient herself was unable to afford this very expensive medication, therefore her hypercholesterolemia is uncontrolled and not treatable nor treated. Therefore her stents and her vein grafts remain at risk of restenosis, but me and my office have done all we can to try to get her on that monoclonal antibody. 5. Hypertension. Patient will continue with Toprol XL 50 mg and losartan 25 mg daily for control of blood pressure. During the period of observation, her blood pressure has been labile and therefore the decision made to keep her on 50 mg Toprol XL once a day. Lab values reviewed during this consultation includes CBC: Hemoglobin 14.6, WBC normal, platelets 223,000. BNP is 527 and is within the normal range for age 82. Troponin-I was less than 0.012 three times. The renal function show BUN 13, creatinine 0.63, sodium 143.3, potassium 3.8. TSH 0.77 and the patient is on Synthroid 100 mcg daily. I have discussed the management and follow up with patient, patient's daughter and hospitalist on duty on 02/06/18. TOTAL TIME SPENT: One hour 15 minutes. DICTATING PHYSICIAN: FERNANDO BURR M.D. [id number] PHY#: [id number] ID: [id number] JOB#: [id number] ACCT: [id number] cc:FERNANDO BURR M.D. > [facility]
[2018-02-06 13:25] VITALS: BP 143/75
[2018-02-07] MEDS ORDERED: LEVOTHYROXINE SODIUM 0.112 MG TABLET PO SCH (06:00)
[2018-02-07] MEDS ORDERED: CHOLECALCIFEROL (D3) 1,000 UNIT TABLET PO SCH (10:00)
== END 2018-02-06 11:25 | disposition home or self-care (01) ==
LOC: ER 17:01 → EH 21:51
PROVIDERS: ADMIT Internal Medicine; ATTEND Internal Medicine
DX: R00.1 Bradycardia, unspecified (principal); I25.10 Atherosclerotic heart disease of native coronary artery without angina pectoris; R19.8 Other specified symptoms and signs involving the digestive system and abdomen; E03.9 Hypothyroidism, unspecified; E78.00 Pure hypercholesterolemia, unspecified; I10 Essential (primary) hypertension; E11.9 Type 2 diabetes mellitus without complications; R42 Dizziness and giddiness; I48.0 Paroxysmal atrial fibrillation; I25.2 Old myocardial infarction; Z95.1 Presence of aortocoronary bypass graft; Z79.82 Long term (current) use of aspirin; Z95.5 Presence of coronary angioplasty implant and graft; Z86.718 Personal history of other venous thrombosis and embolism; Z90.49 Acquired absence of other specified parts of digestive tract; Z90.710 Acquired absence of both cervix and uterus; Z79.899 Other long term (current) drug therapy; Z86.79 Personal history of other diseases of the circulatory system; Z79.02 Long term (current) use of antithrombotics/antiplatelets
CPT/HCPCS: 93005 ×2; 99285; 36415 ×2; 82553 ×2; 82550 ×2; 83735; 84100; 84443; 85025; 80048; 80053; 84484 ×2; 83880; 71045; 93010 ×2; G0378; A9270 ×7

== ENCOUNTER 2018-06-13 09:06 | Emergency (ER) | payer MEDICARE, BC ==
[2018-06-13] MEDS ORDERED: ONDANSETRON HCL INJ/PF 4 MG/2 ML SDV IV ONE (09:25)
[2018-06-13] MEDS ORDERED: DICYCLOMINE HCL INJ 20 MG/2 ML AMPULE IM ONE (09:26)
--- NOTE | 2018-06-13 09:28 | ER Document Report ---
ED Medical Screen (RME) - General Chief Complaint: Abdominal Pain Stated Complaint: ABDOMINAL PAIN Time Seen by Provider: 06/13/18 09:18 Notes: 83 years old pleasant female presents today with left-sided abdominal cramp on and off for the last 4 days. Mostly comes on in the morning but never completely resolved. Radiating to the left flank. Associated with nausea no vomiting. Had no diarrhea, had 1 or 2 bowel movements a day. No fever chills or other constitutional symptoms. Denies any dysuria frequency or urgency. On examination-left local left lower quadrant mild tenderness were noted. No flank tenderness. TRAVEL OUTSIDE OF THE [place] IN LAST 30 DAYS: No - Related Data Allergies/Adverse Reactions: Iodinated Contrast- Oral and IV Dye Allergy (Severe, Verified 06/13/18 09:16) Angioedema metformin [Metformin] Allergy (Severe, Verified 06/13/18 09:16) Diarrhea morphine Allergy (Verified 06/13/18 09:16) Ubbioed-Xom-Jnb Reductase Inhibitor Adverse Reaction (Intermediate, Verified 09:16) Stiffness in joints Past Medical History - Social History Drug Abuse: None - Past Medical History Cardiac Medical History: Reports: Hx Congestive Heart Failure, Hx Coronary Artery Disease, Hx DVT - 1997, Hx Hypertension Denies: Hx Pulmonary Embolism Pulmonary Medical History: Denies: Hx Asthma, Hx COPD Neurological Medical History: Denies: Hx Seizures Endocrine Medical History: Reports: Hx Hypothyroidism. Denies: Hx Diabetes Mellitus Type 1, Hx Diabetes Mellitus Type 2, Hx Hyperthyroidism Renal/ Medical History: Denies: Hx Peritoneal Dialysis GI Medical History: Denies: Hx Cirrhosis, Hx Gastroesophageal Reflux Disease, Hx Hepatitis Musculoskeltal Medical History: Reports Hx Arthritis Skin Medical History: Denies Hx Eczema, Denies Hx Psoriasis Psychiatric Medical History: Denies: Hx Depression Infectious Medical History: Denies: Hx Hepatitis Past Surgical History: Reports: Hx Cardiac Catheterization - x4-5 years ago- [place] and "recently" @ [place], Cardiac Surgery - 3 stents placed, Hx Cholecystectomy, Hx Coronary Artery Bypass Graft - March 2015, [facility], Coronary Stent - 4 total; last March 2015, around the time of her 3 vessel cabg, Hx Hysterectomy, Hx Orthopedic Surgery - bilat hip replacement - Immunizations Hx Diphtheria, Pertussis, Tetanus Vaccination: Yes Physical Exam - Vital signs Vitals: Temp Pulse BP Pulse Ox 97.7 F 59 L 169/72 H 98 06/13/18 09:19 06/13/18 09:19 06/13/18 09:19 06/13/18 09:19 Course - Vital Signs Vital signs: Temp Pulse Resp BP Pulse Ox 97.7 F 59 L 169/72 H 98 06/13/18 09:19 06/13/18 09:19 06/13/18 09:19 06/13/18 09:19 Doctor's Discharge - Discharge Referrals: CARLY LEACH MD [Primary Care Provider] - Follow up as needed
[2018-06-13] MEDS ORDERED: ONDANSETRON 4 MG TAB.RAPDIS ONE (09:44)
[2018-06-13 09:59] LABS: ABSOLUTE BASOPHILS # (AUTO) 0.1 10^3/uL (0.0-0.2); ABSOLUTE EOSINOPHILS # (AUTO) 0.1 10^3/uL (0.0-0.6); ABSOLUTE LYMPHOCYTES (AUTO) 1.4 10^3/uL (0.5-4.7); ABSOLUTE MONOCYTES (AUTO) 0.6 10^3/uL (0.1-1.4); ABSOLUTE NEUT (AUTO) 4.7 10^3/uL (1.7-8.2); BASOPHILS % (AUTO) 0.9 % (0-2); HEMATOCRIT 41.7 % (36.0-47.0); HEMOGLOBIN 14.7 g/dL (12.0-15.5); LYMPHOCYTES % (AUTO) 20.9 % (13-45); MEAN CORPUSCULAR HEMOGLOBIN 31.5 pg (27.0-33.4); MEAN CORPUSCULAR HGB CONC 35.4 g/dL (32.0-36.0); MEAN CORPUSCULAR VOLUME 89 fl (80-97); PLATELET COUNT 215 10^3/uL (150-450); RED BLOOD COUNT 4.67 10^6/uL (3.72-5.28); RED CELL DISTRIBUTION WIDTH 13.1 % (11.5-14.0); SEGMENTED NEUTROPHILS % (AUTO) 67.2 % (42-78); TOTAL CELLS COUNTED % (AUTO) 100 %; WHITE BLOOD COUNT 6.9 10^3/uL (4.0-10.5)
[2018-06-13 10:16] LABS: ALANINE AMINOTRANSFERASE 27 U/L (9-52); ALBUMIN 4.1 g/dL (3.5-5.0); ALKALINE PHOSPHATASE 87 U/L (38-126); ANION GAP 9 (5-19); ASPARTATE AMINO TRANSFERASE 21 U/L (14-36); BILIRUBIN,DIRECT 0.2 mg/dL (0.0-0.4); BILIRUBIN,TOTAL 0.9 mg/dL (0.2-1.3); BLOOD UREA NITROGEN 10 mg/dL (7-20); CALCIUM 10.3 mg/dL (8.4-10.2); CARBON DIOXIDE 25 mmol/L (22-30); CHLORIDE 101 mmol/L (98-107); GLUCOSE 112 mg/dL (75-110); LIPASE 94.3 U/L (23-300); POTASSIUM 4.1 mmol/L (3.6-5.0); SODIUM 135.2 mmol/L (137-145); TOTAL PROTEIN 7.3 g/dL (6.3-8.2)
--- NOTE | 2018-06-13 10:36 | ER Document Report ---
ED General - General Chief Complaint: Abdominal Pain Stated Complaint: ABDOMINAL PAIN Time Seen by Provider: 06/13/18 09:18 Mode of Arrival: Ambulatory Information source: Patient Notes: This is an 83-year-old female with history of coronary artery disease, hypertension who was referred to the emergency room for several days of left lower quadrant, left flank and left back pain. Patient denies fever. She was started on oral Cipro and Flagyl 2 days ago for presumed diverticulitis. Patient does have a history of 2 hip surgeries and she has significant altered gait after the left hip replacement and walks with a significant limp. TRAVEL OUTSIDE OF THE [place] IN LAST 30 DAYS: No - HPI Onset: Last week Onset/Duration: Gradual Quality of pain: Dull Severity: Mild Pain Level: 1 Associated symptoms: denies: Chest pain, Fever, Shortness of breath Exacerbated by: Denies Relieved by: Denies Similar symptoms previously: Yes Recently seen / treated by doctor: Yes - Related Data Allergies/Adverse Reactions: Iodinated Contrast- Oral and IV Dye Allergy (Severe, Verified 06/13/18 09:16) Angioedema metformin [Metformin] Allergy (Severe, Verified 06/13/18 09:16) Diarrhea morphine Allergy (Verified 06/13/18 09:16) Ecuhfnu-Rkz-Xoq Reductase Inhibitor Adverse Reaction (Intermediate, Verified 09:16) Stiffness in joints Past Medical History - General Information source: Patient - Social History Smoking Status: Unknown if Ever Smoked Cigarette use (# per day): No Chew tobacco use (# tins/day): No Drug Abuse: None Lives with: Family Family History: Reviewed & Not Pertinent, Other Patient has suicidal ideation: No Patient has homicidal ideation: No - Past Medical History Cardiac Medical History: Reports: Hx Congestive Heart Failure, Hx Coronary Artery Disease, Hx DVT - 1997, Hx Hypertension Denies: Hx Pulmonary Embolism Pulmonary Medical History: Denies: Hx Asthma, Hx COPD Neurological Medical History: Denies: Hx Seizures Endocrine Medical History: Reports: Hx Hypothyroidism. Denies: Hx Diabetes Mellitus Type 1, Hx Diabetes Mellitus Type 2, Hx Hyperthyroidism Renal/ Medical History: Denies: Hx Peritoneal Dialysis GI Medical History: Denies: Hx Cirrhosis, Hx Gastroesophageal Reflux Disease, Hx Hepatitis Musculoskeletal Medical History: Reports Hx Arthritis Skin Medical History: Denies Hx Eczema, Denies Hx Psoriasis Psychiatric Medical History: Denies: Hx Depression Infectious Medical History: Denies: Hx Hepatitis Past Surgical History: Reports: Hx Cardiac Catheterization - x4-5 years ago- [place] and "recently" @ [place], Cardiac Surgery - 3 stents placed, Hx Cholecystectomy, Hx Coronary Artery Bypass Graft - March 2015, [facility], Hx Coronary Stent - 4 total; last 2March 2015, around the time of her 3 vessel cabg, Hx Hysterectomy, Hx Orthopedic Surgery - bilat hip replacement - Immunizations Hx Diphtheria, Pertussis, Tetanus Vaccination: Yes Hx Pneumococcal Vaccination: 08/28/10 Review of Systems - Review of Systems Constitutional: denies: Chills, Fever EENT: No symptoms reported Cardiovascular: No symptoms reported Respiratory: No symptoms reported Gastrointestinal: See HPI Genitourinary: No symptoms reported Female Genitourinary: No symptoms reported Musculoskeletal: See HPI Skin: No symptoms reported Hematologic/Lymphatic: No symptoms reported Neurological/Psychological: No symptoms reported Physical Exam - Vital signs Vitals: Temp Pulse BP Pulse Ox 97.7 F 59 L 169/72 H 98 06/13/18 09:19 06/13/18 09:19 06/13/18 09:19 06/13/18 09:19 Notes: Physical exam: GENERAL: Patient is alert and oriented x3, no acute distress. HEAD: Atraumatic, normocephalic. EYES: Pupils equal round and reactive to light, extraocular movements intact, sclera anicteric, conjunctiva are normal. ENT: TMs normal, nares patent, oropharynx clear without exudates. Moist mucous membranes. NECK: Normal range of motion, supple without obvious mass or JVD. LUNGS: Breath sounds clear to auscultation bilaterally and equal. No wheezes rales or rhonchi. HEART: Regular rate and rhythm without murmurs, rubs or gallops. ABDOMEN: Soft, normoactive bowel sounds. Mild left lower quadrant tenderness to palpation. No guarding, no rebound. No masses appreciated. Back: Patient does have lower lumbar tenderness over the bone as well as in the left paravertebral area. There is no step-offs or crepitus or skin changes. Rectal: Good tone, stool brown, sent for study. Rectal temperature was 98.5 EXTREMITIES: Normal range of motion, no pitting or edema. No clubbing or cyanosis. NEUROLOGICAL: Cranial nerves II through XII grossly intact. Normal speech, moving all extremities. PSYCH: Normal mood, normal affect. SKIN: Warm, Dry, normal turgor, no rashes or lesions noted. Bedside ultrasound: No hydronephrosis on the left, no obvious aortic enlargement. Was a fair amount of bowel gas. Course - Vital Signs Vital signs: Temp Pulse Resp BP Pulse Ox 97.4 F 56 L 20 129/60 H 97 06/13/18 15:27 06/13/18 15:27 06/13/18 15:27 06/13/18 15:27 06/13/18 15:27 - Laboratory Result Diagrams: 06/13/18 09:20 06/13/18 09:20 Laboratory results interpreted by me: 06/13/18 06/13/18 09:20 11:30 Sodium 135.2 L Glucose 112 H Calcium 10.3 H Ur Leukocyte Esterase MODERATE H Discharge - Discharge Clinical Impression: Flank pain, Back pain Condition: Stable Disposition: HOME, SELF-CARE Additional Instructions: As we discussed the CAT scan of the abdomen showed no obvious inflammation of the bowel. You do have some diverticulosis but no obvious inflammation. I do want you to continue with the oral antibiotics because it can sometimes height findings on the CAT scan. I do think a lot of your symptoms are related to your back and the CT does show some scoliosis and some arthritis. I recommend getting a referral to a physical therapist and following up with your primary care doctor. If the pain persists, they may want to consider an MRI with possible pain medicine injections. As far as the cyst on the right, does appear stable. Your labs look good today. Follow-up with your doctors and bring a copy of today's results with you when you go. Return to the emergency room for concerns of worsening pain. Referrals: CARLY LEACH MD [Primary Care Provider] - Follow up as needed
[2018-06-13 11:57] LABS: APPEARANCE,URINE CLEAR; BILIRUBIN,URINE NEGATIVE (NEGATIVE); COLOR,URINE YELLOW; GLUCOSE, URINE NEGATIVE (NEGATIVE); KETONES,URINE NEGATIVE (NEGATIVE); LEUKOCYTE ESTERASE,URINE MODERATE (NEGATIVE); NITRITE,URINE NEGATIVE (NEGATIVE); PROTEIN,URINE NEGATIVE (NEGATIVE); URINE SPECIFIC GRAVITY 1.008; UROBILINOGEN,URINE NEGATIVE mg/dL (<2.0)
--- NOTE | 2018-06-13 13:28 | RADIOLOGY REPORT (SQ) ---
EXAM DESCRIPTION: CT ABD/PELVIS ORAL ONLY COMPLETED DATE/TIME: 06/13/2018 1:12 pm REASON FOR STUDY: left flank pain COMPARISON: 06/15/2017 TECHNIQUE: CT scan of the abdomen and pelvis performed with oral contrast and no intravenous contras t. Images reviewed with lung, soft tissue, and bone windows. Reconstructed coronal and sagittal MPR i mages reviewed. All images stored on PACS. All CT scanners at this facility use dose modulation, iterative reconstruction, and/or weight based d osing when appropriate to reduce radiation dose to as low as reasonably achievable (ALARA). [facility]: Dose Right [facility]: CareDose [facility]: Dose Right [facility]: Teradose 4D [facility]: Yecuris RADIATION DOSE: CT Rad equipment meets quality standard of care and radiation dose reduction techniq ues were employed. CTDIvol: 18.0 mGy. DLP: 959 mGy-cm. mGy. LIMITATIONS: Artifact from bilateral hip arthroplasty. FINDINGS: LOWER CHEST: No significant findings. No nodules or infiltrates. NON-CONTRASTED LIVER, SPLEEN, ADRENALS: Hepatic posterior sub capsular calcifications, stable. PANCREAS: No masses. No peripancreatic inflammatory changes. GALLBLADDER: Surgically absent. RIGHT KIDNEY AND URETER: No suspicious masses. Assessment limited by lack of IV contrast. No signif icant calcifications. No hydronephrosis or hydroureter. LEFT KIDNEY AND URETER: No suspicious masses. Assessment limited by lack of IV contrast. No signifi cant calcifications. No hydronephrosis or hydroureter. AORTA AND RETROPERITONEUM: No aneurysm. No retroperitoneal masses or adenopathy. BOWEL AND PERITONEAL CAVITY: Diverticulosis descending and sigmoid colon. No obvious masses or infla mmatory changes. No free fluid. APPENDIX: Normal. PELVIS, BLADDER, AND ABDOMINAL WALL: 5.2 x 3.5 cm cystic lesion right ovary, stable. BONES: No acute findings. OTHER: No other significant finding. IMPRESSION: No acute findings. Diverticulosis. Stable right ovarian cystic lesion. TECHNICAL DOCUMENTATION: JOB ID: [id number] Quality ID # [id number]: Final reports with documentation of one or more dose reduction techniques (e.g., Au tomated exposure control, adjustment of the mA and/or kV according to patient size, use of iterative reconstruction technique) 2010 [employer]- All Rights Reserved Reading location - IP/workstation name: [email or web address]
[2018-06-13 15:36] VITALS: BP 129/60
== END 2018-06-13 15:36 | disposition home or self-care (01) ==
LOC: ER 09:06
DX: R10.9 Unspecified abdominal pain (principal); M54.9 Dorsalgia, unspecified; R10.32 Left lower quadrant pain; I25.10 Atherosclerotic heart disease of native coronary artery without angina pectoris; I10 Essential (primary) hypertension; I50.9 Heart failure, unspecified
CPT/HCPCS: 99284; 96372; 36415; 83690; 85025; 82272; 80053; 81001; 74176; J0500; A9270; S0119

== ENCOUNTER → 2018-09-05 | Outpatient (CLI) | payer MEDICARE, BC ==
[2018-09-05 12:55] LABS: ALANINE AMINOTRANSFERASE 18 U/L (9-52); ALBUMIN 4.4 g/dL (3.5-5.0); ALKALINE PHOSPHATASE 90 U/L (38-126); ANION GAP 9 (5-19); ASPARTATE AMINO TRANSFERASE 22 U/L (14-36); BILIRUBIN,DIRECT 0.2 mg/dL (0.0-0.4); BILIRUBIN,TOTAL 0.6 mg/dL (0.2-1.3); BLOOD UREA NITROGEN 14 mg/dL (7-20); CALCIUM 9.7 mg/dL (8.4-10.2); CARBON DIOXIDE 27 mmol/L (22-30); CHLORIDE 101 mmol/L (98-107); CHOLESTEROL 218.42 mg/dL (0-200); GLUCOSE 94 mg/dL (75-110); POTASSIUM 4.4 mmol/L (3.6-5.0); SODIUM 137.4 mmol/L (137-145); TOTAL PROTEIN 7.3 g/dL (6.3-8.2); TRIGLYCERIDES 140 mg/dL (<150)
[2018-09-05 13:06] LABS: DIRECT LDL 141 mg/dL (<100)
== END ==
LOC: OD 11:39
PROVIDERS: ATTEND Internal Medicine Cardiovascular Disease
DX: I25.10 Atherosclerotic heart disease of native coronary artery without angina pectoris (principal); I48.91 Unspecified atrial fibrillation; E55.9 Vitamin D deficiency, unspecified; E78.2 Mixed hyperlipidemia; R06.02 Shortness of breath; I50.23 Acute on chronic systolic (congestive) heart failure
CPT/HCPCS: 36415; 80048; 80061; 80076; 83735; 83880; 84443

== ENCOUNTER → 2018-11-22 | Outpatient (CLI) | payer MEDICARE, BC, OTHER ==
[2018-11-22 10:25] LABS: ALANINE AMINOTRANSFERASE 18 U/L (9-52); ALBUMIN 4.3 g/dL (3.5-5.0); ALKALINE PHOSPHATASE 93 U/L (38-126); ANION GAP 9 (5-19); ASPARTATE AMINO TRANSFERASE 26 U/L (14-36); BILIRUBIN,DIRECT 0.2 mg/dL (0.0-0.4); BILIRUBIN,TOTAL 0.7 mg/dL (0.2-1.3); BLOOD UREA NITROGEN 13 mg/dL (7-20); CARBON DIOXIDE 27 mmol/L (22-30); CHLORIDE 103 mmol/L (98-107); CHOLESTEROL 217.96 mg/dL (0-200); GLUCOSE 98 mg/dL (75-110); POTASSIUM 4.3 mmol/L (3.6-5.0); SODIUM 139.2 mmol/L (137-145); TOTAL PROTEIN 7.6 g/dL (6.3-8.2); TRIGLYCERIDES 136 mg/dL (<150)
[2018-11-22 10:36] LABS: DIRECT LDL 148 mg/dL (<100)
== END ==
LOC: LAB 09:10
PROVIDERS: ATTEND Internal Medicine Cardiovascular Disease
DX: E78.2 Mixed hyperlipidemia (principal); I10 Essential (primary) hypertension; Z79.899 Other long term (current) drug therapy
CPT/HCPCS: 36415; 80048; 80061; 80076

== ENCOUNTER → 2019-03-15 | Outpatient (CLI) | payer MEDICARE, BC | LOC: LAB 15:06 | PROVIDERS: ATTEND Physician Assistant | DX: E03.9 Hypothyroidism, unspecified (principal) | CPT/HCPCS: 36415; 84443 ==

== ENCOUNTER → 2019-04-03 | Outpatient (CLI) | payer MEDICARE, BC ==
[2019-04-03 10:13] LABS: HEMOGLOBIN 14.2 g/dL (12.0-15.5); MEAN CORPUSCULAR HEMOGLOBIN 31.2 pg (27.0-33.4); MEAN CORPUSCULAR HGB CONC 34.6 g/dL (32.0-36.0); MEAN CORPUSCULAR VOLUME 90 fl (80-97); PLATELET COUNT 194 10^3/uL (150-450); RED BLOOD COUNT 4.55 10^6/uL (3.72-5.28); RED CELL DISTRIBUTION WIDTH 13.7 % (11.5-14.0); WHITE BLOOD COUNT 4.6 10^3/uL (4.0-10.5)
[2019-04-03 10:23] LABS: APPEARANCE,URINE SLIGHTLY-CLOUDY; BILIRUBIN,URINE NEGATIVE (NEGATIVE); COLOR,URINE YELLOW; GLUCOSE, URINE NEGATIVE (NEGATIVE); KETONES,URINE NEGATIVE (NEGATIVE); LEUKOCYTE ESTERASE,URINE TRACE (NEGATIVE); NITRITE,URINE NEGATIVE (NEGATIVE); PROTEIN,URINE NEGATIVE (NEGATIVE); URINE SPECIFIC GRAVITY 1.013; UROBILINOGEN,URINE NEGATIVE mg/dL (<2.0)
[2019-04-03 10:34] LABS: ALBUMIN 4.4 g/dL (3.5-5.0); ALKALINE PHOSPHATASE 85 U/L (38-126); ANION GAP 11 (5-19); ASPARTATE AMINO TRANSFERASE 28 U/L (14-36); BILIRUBIN,DIRECT 0.2 mg/dL (0.0-0.4); BILIRUBIN,TOTAL 0.7 mg/dL (0.2-1.3); BLOOD UREA NITROGEN 12 mg/dL (7-20); CALCIUM 9.7 mg/dL (8.4-10.2); CARBON DIOXIDE 24 mmol/L (22-30); CHLORIDE 103 mmol/L (98-107); GLUCOSE 103 mg/dL (75-110); TOTAL PROTEIN 7.4 g/dL (6.3-8.2)
== END ==
LOC: LAB 09:41
PROVIDERS: ATTEND Internal Medicine Cardiovascular Disease
DX: I48.91 Unspecified atrial fibrillation (principal); Z79.01 Long term (current) use of anticoagulants; Z79.899 Other long term (current) drug therapy
CPT/HCPCS: 36415; 80048; 80076; 81001; 82272; 83735; 85027; 85730

== ENCOUNTER 2019-04-05 09:50 | Emergency (ER) | payer MEDICARE, BC ==
--- NOTE | 2019-04-05 10:59 | ER Document Report ---
ED Medical Screen (RME) - General Chief Complaint: Chest Pain Stated Complaint: CHEST PRESSURE Time Seen by Provider: 04/05/19 10:47 Mode of Arrival: Wheelchair Information source: Patient Notes: 84-year-old female presented to ED for complaint of chest pain Monday about 1230. She states it was along pretty bad and she ended up taking some nitroglycerin x3. She states that yesterday about 1030 she had chest pain again and needed 3 nitros to get the pain to get relieved. She states she was then dizzy and nauseated and took some meclizine for the symptoms and they were relieved. She states she went to her primary care doctor for and they had done her whole exam and said she was okay on her medicines and then asked how she been doing and her daughter told the doctor that she needed to take nitro x3 twice for chest pain. He stated that the curing room supervisor needed to be called right away. When to call the curing room supervisor they told her to come to the emergency room. She does have a history of heart attack with bypass surgery and stents high blood pressure and cholesterol. Daughter states she recently had a cardiac technician and she is in A. fib most of the time. Patient is alert oriented respirations regular and unlabored at this time. She states she is not having any chest pain at this moment. I have greeted and performed a rapid initial assessment of this patient. A c omprehensive ED assessment and evaluation of the patient, analysis of test results and completion of medical decision making process will be conducted by an additional ED providers. Dictation of this chart was performed using voice recognition software; therefore, there may be some unintended grammatical errors. TRAVEL OUTSIDE OF THE [place] IN LAST 30 DAYS: No - Related Data Allergies/Adverse Reactions: Iodinated Contrast- Oral and IV Dye Allergy (Severe, Verified 04/05/19 09:52) Angioedema metformin [Metformin] Allergy (Severe, Verified 04/05/19 09:52) Diarrhea morphine Allergy (Verified 04/05/19 09:52) Sujtldy-Wwf-Zvy Reductase Inhibitor Adverse Reaction (Intermediate, Verified 04/05/19 09:52) Stiffness in joints Past Medical History - Past Medical History Cardiac Medical History: Reports: Hx Congestive Heart Failure, Hx Coronary Artery Disease, Hx DVT - 1998, Hx Hypertension Denies: Hx Pulmonary Embolism Pulmonary Medical History: Denies: Hx Asthma, Hx COPD Neurological Medical History: Denies: Hx Seizures Endocrine Medical History: Reports: Hx Hypothyroidism. Denies: Hx Diabetes Mellitus Type 1, Hx Diabetes Mellitus Type 2, Hx Hyperthyroidism Renal/ Medical History: Denies: Hx Peritoneal Dialysis GI Medical History: Denies: Hx Cirrhosis, Hx Gastroesophageal Reflux Disease, Hx Hepatitis Musculoskeltal Medical History: Reports Hx Arthritis Skin Medical History: Denies Hx Eczema, Denies Hx Psoriasis Psychiatric Medical History: Denies: Hx Depression Infectious Medical History: Denies: Hx Hepatitis Past Surgical History: Reports: Hx Cardiac Catheterization - x4-5 years ago- [place] and "recently" @ [place], Cardiac Surgery - 3 stents placed, Hx Cholecystectomy, Hx Coronary Artery Bypass Graft - March 2015, [facility], Coronary Stent - 4 total; last March 2015, around the time of her 3 vessel cabg, Hx Hysterectomy, Hx Orthopedic Surgery - bilat hip replacement - Immunizations Hx Diphtheria, Pertussis, Tetanus Vaccination: Yes Physical Exam - Vital signs Vitals: Temp Pulse Resp BP Pulse Ox 98.1 F 114 H 16 154/59 H 96 04/05/19 10:01 04/05/19 10:01 04/05/19 10:01 04/05/19 10:01 04/05/19 10:01 Course - Vital Signs Vital signs: Temp Pulse Resp BP Pulse Ox 98.1 F 114 H 16 154/59 H 96 04/05/19 10:01 04/05/19 10:01 04/05/19 10:01 04/05/19 10:01 04/05/19 10:01
[2019-04-05 11:22] LABS: ABSOLUTE BASOPHILS # (AUTO) 0.1 10^3/uL (0.0-0.2); ABSOLUTE EOSINOPHILS # (AUTO) 0.2 10^3/uL (0.0-0.6); ABSOLUTE LYMPHOCYTES (AUTO) 1.8 10^3/uL (0.5-4.7); ABSOLUTE MONOCYTES (AUTO) 0.5 10^3/uL (0.1-1.4); ABSOLUTE NEUT (AUTO) 2.7 10^3/uL (1.7-8.2); BASOPHILS % (AUTO) 1.2 % (0-2); EOSINOPHILS % (AUTO) 4.7 % (0-6); HEMATOCRIT 42.3 % (36.0-47.0); HEMOGLOBIN 14.4 g/dL (12.0-15.5); LYMPHOCYTES % (AUTO) 34.8 % (13-45); MEAN CORPUSCULAR HEMOGLOBIN 30.8 pg (27.0-33.4); MEAN CORPUSCULAR HGB CONC 33.9 g/dL (32.0-36.0); MEAN CORPUSCULAR VOLUME 91 fl (80-97); MONOCYTES % (AUTO) 8.8 % (3-13); PLATELET COUNT 223 10^3/uL (150-450); RED BLOOD COUNT 4.67 10^6/uL (3.72-5.28); RED CELL DISTRIBUTION WIDTH 13.5 % (11.5-14.0); SEGMENTED NEUTROPHILS % (AUTO) 50.5 % (42-78); TOTAL CELLS COUNTED % (AUTO) 100 %; WHITE BLOOD COUNT 5.3 10^3/uL (4.0-10.5)
[2019-04-05 11:24] LABS: INTERNATIONAL RATION (INR) 1.04; PROTHROMBIN TIME 13.6 SEC (11.4-15.4)
[2019-04-05 11:25] LABS: PARTIAL THROMBOPLASTIN TIME 26.1 SEC (23.5-35.8)
--- NOTE | 2019-04-05 11:43 | RADIOLOGY REPORT (SQ) ---
EXAM DESCRIPTION: CHEST 2 VIEWS COMPLETED DATE/TIME: 04/05/2019 11:32 am REASON FOR STUDY: chest pain COMPARISON: 02/05/2018 EXAM PARAMETERS: NUMBER OF VIEWS: two views TECHNIQUE: Digital Frontal and Lateral radiographic views of the chest acquired. RADIATION DOSE: NA LIMITATIONS: none FINDINGS: LUNGS AND PLEURA: No opacities, masses or pneumothorax. No pleural effusion. MEDIASTINUM AND HILAR STRUCTURES: No masses or contour abnormalities. HEART AND VASCULAR STRUCTURES: Heart normal size. No evidence for failure. BONES: Degenerative joint changes seen in each shoulder. HARDWARE: Sternotomy wires. OTHER: No other significant finding. IMPRESSION: No acute cardiopulmonary findings. 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 TECHNICAL DOCUMENTATION: JOB ID: [id number] [employer]- All Rights Reserved Reading location - IP/workstation name: [email or web address]
[2019-04-05 11:49] LABS: ALBUMIN 4.5 g/dL (3.5-5.0); ALKALINE PHOSPHATASE 88 U/L (38-126); ANION GAP 8 (5-19); ASPARTATE AMINO TRANSFERASE 25 U/L (14-36); BILIRUBIN,DIRECT 0.2 mg/dL (0.0-0.4); BILIRUBIN,TOTAL 0.6 mg/dL (0.2-1.3); BLOOD UREA NITROGEN 11 mg/dL (7-20); CALCIUM 9.7 mg/dL (8.4-10.2); CARBON DIOXIDE 27 mmol/L (22-30); CHLORIDE 104 mmol/L (98-107); CREATINE KINASE 52 U/L (30-135); GLUCOSE 94 mg/dL (75-110); POTASSIUM 4.2 mmol/L (3.6-5.0); TOTAL PROTEIN 7.5 g/dL (6.3-8.2)
[2019-04-05 11:49] LABS: ADD MANUAL MICROSCOPIC YES; APPEARANCE,URINE CLEAR; BILIRUBIN,URINE NEGATIVE (NEGATIVE); COLOR,URINE YELLOW; GLUCOSE, URINE NEGATIVE (NEGATIVE); KETONES,URINE NEGATIVE (NEGATIVE); LEUKOCYTE ESTERASE,URINE TRACE (NEGATIVE); NITRITE,URINE NEGATIVE (NEGATIVE); PROTEIN,URINE NEGATIVE (NEGATIVE); RBC,URINE NONE SEEN /HPF; URINE SPECIFIC GRAVITY 1.008; UROBILINOGEN,URINE NEGATIVE mg/dL (<2.0)
[2019-04-05 11:50] LABS: BACTERIA,URINE TRACE /HPF
[2019-04-05 12:10] LABS: CREATINE KINASE MB 0.45 ng/mL (<4.55)
[2019-04-05 12:11] LABS: TROPONIN I < 0.012 ng/mL
--- NOTE | 2019-04-05 13:21 | EKG REPORT ---
SEVERITY:- ABNORMAL ECG - SINUS RHYTHM LEFT BUNDLE BRANCH BLOCK : Confirmed by: Galindo Rothman MD 05-Apr-2019 13:20:22
--- NOTE | 2019-04-05 15:57 | ER Document Report ---
ED General - General Chief Complaint: Chest Pain Stated Complaint: CHEST PRESSURE Time Seen by Provider: 04/05/19 10:47 Primary Care Provider: CARLY LEACH MD [Primary Care Provider] - Follow up as needed Mode of Arrival: Wheelchair Notes: Patient is a 84-year-old female with CAD, status post CABG and multiple stents that presents to the emergency department for chief complaint of chest pressure. Patient reports is been having on and off chest pressure, with and without exertion at home, with mild associated shortness of breath, and nausea. She was taking her home nitro, which has relieved her pain, she took her Plavix this morning, but not aspirin. She states she was recently being worked up for paroxysmal atrial fibrillation, and is not sure if that is playing part of this as well, she had a Holter monitor that did demonstrate she went into A. fib, she is not currently on full anticoagulation, just the Plavix and aspirin. She last had stents in 2016 she believes. She at this time rates her pain as a 2 out of 10, is a heaviness in her chest and a tightness. Past Medical History: CAD, hypertension, hyperlipidemia Past Surgical History: CABG, multiple stents Social History: Denies tobacco, alcohol or drug use. Family History: Reviewed and noncontributory for presenting illness Allergies: Reviewed, see documented allergy list. REVIEW OF SYSTEMS: Other than noted above, the 12 point review of systems was reviewed with the patient and were negative, all pertinent findings are included in the HPI. PHYSICAL EXAMINATION: Vital signs reviewed, nursing noted reviewed. GENERAL: Elderly female, no acute distress HEAD: Atraumatic, normocephalic. EYES: Eyes appear normal, extraocular movements intact, sclera anicteric, conjunctiva are normal. ENT: nares patent, oropharynx clear without exudates. Moist mucous membranes. NECK: Normal range of motion, supple without lymphadenopathy LUNGS: Breath sounds clear to auscultation bilaterally and equal. No wheezes rales or rhonchi. HEART: Regular rate and rhythm without murmurs ABDOMEN: Soft, nontender, normoactive bowel sounds. No rebound, guarding, or rigidity. No masses appreciated. EXTREMITIES: Nontender, good range of motion, no pitting or edema. NEUROLOGICAL: No focal neurological deficits. Moves all extremities spontaneously Motor and sensory grossly intact on exam. PSYCH: Normal mood, normal affect. SKIN: Warm, Dry, normal turgor, no rashes or lesions noted on exposed skin TRAVEL OUTSIDE OF THE [place] IN LAST 30 DAYS: No - Related Data Allergies/Adverse Reactions: Iodinated Contrast- Oral and IV Dye Allergy (Severe, Verified 04/05/19 09:52) Angioedema metformin [Metformin] Allergy (Severe, Verified 04/05/19 09:52) Diarrhea morphine Allergy (Verified 04/05/19 09:52) Pokuppi-Ktf-Pde Reductase Inhibitor Adverse Reaction (Intermediate, Verified 04/05/19 09:52) Stiffness in joints Past Medical History - General Information source: Patient - Social History Smoking Status: Never Smoker Chew tobacco use (# tins/day): No Frequency of alcohol use: None Drug Abuse: None Family History: Reviewed & Not Pertinent, Other Patient has suicidal ideation: No Patient has homicidal ideation: No - Past Medical History Cardiac Medical History: Reports: Hx Congestive Heart Failure, Hx Coronary Artery Disease, Hx DVT - 1997, Hx Hypercholesterolemia, Hx Hypertension Denies: Hx Pulmonary Embolism Pulmonary Medical History: Denies: Hx Asthma, Hx COPD Neurological Medical History: Denies: Hx Seizures Endocrine Medical History: Reports: Hx Hypothyroidism. Denies: Hx Diabetes Mellitus Type 1, Hx Diabetes Mellitus Type 2, Hx Hyperthyroidism Renal/ Medical History: Denies: Hx Peritoneal Dialysis GI Medical History: Denies: Hx Cirrhosis, Hx Gastroesophageal Reflux Disease, Hx Hepatitis Musculoskeletal Medical History: Reports Hx Arthritis Skin Medical History: Denies Hx Eczema, Denies Hx Psoriasis Psychiatric Medical History: Denies: Hx Depression Infectious Medical History: Denies: Hx Hepatitis Past Surgical History: Reports: Hx Cardiac Catheterization - x4-5 years ago- [place] and "recently" @ [facility], Cardiac Surgery - 3 stents placed, Hx Cholecystectomy, Hx Coronary Artery Bypass Graft - March 2015, [facility], Coronary Stent - 4 total; last March 2015, around the time of her 3 vessel cabg, Hx Hysterectomy, Hx Orthopedic Surgery - bilat hip replacement - Immunizations Hx Diphtheria, Pertussis, Tetanus Vaccination: Yes Hx Pneumococcal Vaccination: 08/28/10 Physical Exam - Vital signs Vitals: Temp Resp BP Pulse Ox 98.1 F 16 154/59 H 96 04/05/19 10:01 04/05/19 10:01 04/05/19 10:01 04/05/19 10:01 Course - Re-evaluation Re-evalutation: Patient seen and examined vital signs reviewed. Laboratory data and imaging were ordered as appropriate for the patient's presenting symptoms and complaint, with consideration of any critical or life threatening conditions that may be associated with their obtained history and e xam as noted above. Patient was treated with nitro paste and aspirin Results were reviewed when available and demonstrated 2- troponins, blood work was otherwise unremarkable The patient was re-evaluated and was stable, her EKG was reviewed, she did have a left bundle branch block, but this was seen on prior EKGs after I reviewed them with her warehouse production worker here Dr. Rothman, who did recommend the patient be transferred to [facility], to see her warehouse production worker there Dr. Becker, as she is been having intermittent chest pain he is concerned she may be having further coronary stenosis, patient was agreeable with this plan of care, and I do agree with this as well, her pain was improved with a Nitropaste, and is stable at this time. Evaluation was most consistent with chest pain, angina Results were discussed with the patient at this point after careful consideration I feel that that patient should be transferred to [facility] due to need for evaluation from interventional cardiology, not available at this institution. This was discussed with the patient that it is in the best interest for their care to be transferred, the risks and benefits of transfer were discussed, including but not limited to clinical deterioration during transport, respiratory distress, and potential for traumatic injuries. Patient agreed with this plan of care. *Note is created using voice recognition software and may contain spelling, syntax or grammatical errors. Laboratory 04/05/19 04/05/19 04/05/19 11:10 11:10 11:10 WBC 5.3 RBC 4.67 Hgb 14.4 Hct 42.3 MCV 91 MCH 30.8 MCHC 33.9 RDW 13.5 Plt Count 223 Seg Neutrophils % 50.5 Lymphocytes % 34.8 Monocytes % 8.8 Eosinophils % 4.7 Basophils % 1.2 Absolute Neutrophils 2.7 Absolute Lymphocytes 1.8 Absolute Monocytes 0.5 Absolute Eosinophils 0.2 Absolute Basophils 0.1 PT 13.6 INR 1.04 APTT 26.1 Sodium 139.1 Potassium 4.2 Chloride 104 Carbon Dioxide 27 Anion Gap 8 BUN 11 Creatinine 0.66 Est GFR ( Amer) > 60 Est GFR (Non-Af Amer) > 60 Glucose 94 Calcium 9.7 Total Bilirubin 0.6 Direct Bilirubin 0.2 Neonat Total Bilirubin Not Reportable Neonat Direct Bilirubin Not Reportable Neonat Indirect Bili Not Reportable AST 25 ALT 16 Alkaline Phosphatase 88 Creatine Kinase 52 CK-MB (CK-2) Troponin I Total Protein 7.5 Albumin 4.5 Lipase 188.8 Urine Color Urine Appearance Urine pH Ur Specific Schaller Urine Protein Urine Glucose (UA) Urine Ketones Urine Blood Urine Nitrite Urine Bilirubin Urine Urobilinogen Ur Leukocyte Esterase Urine RBC Urine WBC Ur Squamous Epith Cells Urine Bacteria Urine Mucus Urine Ascorbic Acid 04/05/19 04/05/19 04/05/19 11:10 11:20 14:58 WBC RBC Hgb Hct MCV MCH MCHC RDW Plt Count Seg Neutrophils % Lymphocytes % Monocytes % Eosinophils % Basophils % Absolute Neutrophils Absolute Lymphocytes Absolute Monocytes Absolute Eosinophils Absolute Basophils PT INR APTT Sodium Potassium Chloride Carbon Dioxide Anion Gap BUN Creatinine Est GFR ( Amer) Est GFR (Non-Af Amer) Glucose Calcium Total Bilirubin Direct Bilirubin Neonat Total Bilirubin Neonat Direct Bilirubin Neonat Indirect Bili AST ALT Alkaline Phosphatase Creatine Kinase CK-MB (CK-2) 0.45 Troponin I < 0.012 < 0.012 Total Protein Albumin Lipase Urine Color YELLOW Urine Appearance CLEAR Urine pH 6.0 Ur Specific Schaller 1.008 Urine Protein NEGATIVE Urine Glucose (UA) NEGATIVE Urine Ketones NEGATIVE Urine Blood NEGATIVE Urine Nitrite NEGATIVE Urine Bilirubin NEGATIVE Urine Urobilinogen NEGATIVE Ur Leukocyte Esterase TRACE H Urine RBC NONE SEEN Urine WBC 1-5 Ur Squamous Epith Cells FEW Urine Bacteria TRACE Urine Mucus TRACE Urine Ascorbic Acid NEGATIVE Chest X-Ray 04/05/19 10:55 IMPRESSION: No acute cardiopulmonary findings. 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 - Vital Signs Vital signs: Temp Pulse Resp BP Pulse Ox 98.1 F 13 102/91 H 97 04/05/19 10:01 04/05/19 18:01 04/05/19 18:01 04/05/19 18:01 - Laboratory Result Diagrams: 04/05/19 11:10 04/05/19 11:10 Laboratory results interpreted by me: 04/05/19 11:20 Ur Leukocyte Esterase TRACE H - EKG Interpretation by Me Additional EKG results interpreted by me: EKG demonstrates sinus bradycardia, with a ventricular rate of 60 bpm, left axis deviation, presence of left bundle branch block, with a QTC of 460 ms, negative for sgarbossa criteria, this is compared with a prior EKG from 02/06/2018, at that time the patient had more significant bradycardia at 45 bpm. 04/05/19 16:29 EKG #2 performed at 1623, again demonstrates sinus bradycardia with a ventricular rate of 51 bpm, slight left axis deviation, QTC 461 ms, no change from previous. Discharge - Discharge Clinical Impression: Chest pain Qualifiers: Chest pain type: unspecified Qualified Code(s): R07.9 - Chest pain, unspecified Condition: Stable Disposition: OTHER Referrals: CARLY LEACH MD [Primary Care Provider] - Follow up as needed
[2019-04-05] MEDS ORDERED: ASPIRIN 81 MG TABLET, CHEWABLE PO ONE (17:05)
[2019-04-05] MEDS ORDERED: NITROGLYCERIN 2% OINTMENT 1 GM PACKET TP ONE (17:05)
--- NOTE | 2019-04-05 19:03 | EKG REPORT ---
SEVERITY:- ABNORMAL ECG - SINUS BRADYCARDIA RHYTHM LEFT BUNDLE BRANCH BLOCK : Confirmed by: Galindo Rothman MD 05-Apr-2019 19:02:07
[2019-04-05 22:17] VITALS: BP 131/66
--- NOTE | 2019-04-05 22:25 | ER Document Report ---
Doctor's Note Notes: 04/05/19 22:24 Patient reevaluated upon transfer team arrival. She is alert, awake and in no acute distress. Vital signs stable and patient stable for transfer.
== END 2019-04-05 22:30 | disposition other institution (70) ==
LOC: ER 09:50
DX: R07.89 Other chest pain (principal); R06.02 Shortness of breath; R11.0 Nausea; R00.1 Bradycardia, unspecified; I25.10 Atherosclerotic heart disease of native coronary artery without angina pectoris; I44.7 Left bundle-branch block, unspecified; I10 Essential (primary) hypertension; M19.012 Primary osteoarthritis, left shoulder; M19.011 Primary osteoarthritis, right shoulder; I48.91 Unspecified atrial fibrillation; Z79.02 Long term (current) use of antithrombotics/antiplatelets; Z79.82 Long term (current) use of aspirin; Z95.1 Presence of aortocoronary bypass graft; Z95.5 Presence of coronary angioplasty implant and graft; Z86.718 Personal history of other venous thrombosis and embolism; Z91.041 Radiographic dye allergy status; Z88.8 Allergy status to other drugs, medicaments and biological substances; Z88.5 Allergy status to narcotic agent
CPT/HCPCS: 93005; 36415; 82553; 82550; 83690; 85025; 85610; 85730; 80053; 81001; 84484; 71046; 93010; A9270 ×2; 99285

== ENCOUNTER → 2019-05-13 | Outpatient (CLI) | payer MEDICARE, BC ==
[2019-05-13 10:00] LABS: HEMATOCRIT 41.6 % (36.0-47.0); HEMOGLOBIN 14.1 g/dL (12.0-15.5); MEAN CORPUSCULAR VOLUME 91 fl (80-97); PLATELET COUNT 188 10^3/uL (150-450); RED BLOOD COUNT 4.56 10^6/uL (3.72-5.28); WHITE BLOOD COUNT 5.1 10^3/uL (4.0-10.5)
[2019-05-13 10:11] LABS: APPEARANCE,URINE CLEAR; BILIRUBIN,URINE NEGATIVE (NEGATIVE); COLOR,URINE COLORLESS; GLUCOSE, URINE NEGATIVE (NEGATIVE); KETONES,URINE NEGATIVE (NEGATIVE); LEUKOCYTE ESTERASE,URINE NEGATIVE (NEGATIVE); NITRITE,URINE NEGATIVE (NEGATIVE); PROTEIN,URINE NEGATIVE (NEGATIVE); UROBILINOGEN,URINE NEGATIVE mg/dL (<2.0)
[2019-05-13 10:12] LABS: URINE SPECIFIC GRAVITY 1.007
[2019-05-13 11:20] LABS: ALBUMIN 4.3 g/dL (3.5-5.0); ALKALINE PHOSPHATASE 85 U/L (38-126); ANION GAP 11 (5-19); ASPARTATE AMINO TRANSFERASE 24 U/L (14-36); BILIRUBIN,DIRECT 0.2 mg/dL (0.0-0.4); BILIRUBIN,TOTAL 0.5 mg/dL (0.2-1.3); BLOOD UREA NITROGEN 12 mg/dL (7-20); CALCIUM 9.8 mg/dL (8.4-10.2); CARBON DIOXIDE 23 mmol/L (22-30); CHLORIDE 105 mmol/L (98-107); GLUCOSE 100 mg/dL (75-110); POTASSIUM 4.6 mmol/L (3.6-5.0); TOTAL PROTEIN 7.3 g/dL (6.3-8.2)
== END ==
LOC: LAB 08:52
PROVIDERS: ATTEND Internal Medicine Cardiovascular Disease
DX: I48.91 Unspecified atrial fibrillation (principal); Z79.01 Long term (current) use of anticoagulants; Z79.899 Other long term (current) drug therapy
CPT/HCPCS: 36415; 80048; 80076; 81001; 82272; 83735; 85027; 85730

== ENCOUNTER → 2019-08-30 | Outpatient (CLI) | payer MEDICARE, BC ==
[2019-08-30 09:56] LABS: HEMATOCRIT 41.3 % (36.0-47.0); HEMOGLOBIN 14.5 g/dL (12.0-15.5); MEAN CORPUSCULAR HEMOGLOBIN 31.1 pg (27.0-33.4); MEAN CORPUSCULAR VOLUME 89 fl (80-97); PLATELET COUNT 185 10^3/uL (150-450); RED BLOOD COUNT 4.66 10^6/uL (3.72-5.28); WHITE BLOOD COUNT 5.5 10^3/uL (4.0-10.5)
[2019-08-30 10:03] LABS: APPEARANCE,URINE CLEAR; BILIRUBIN,URINE NEGATIVE (NEGATIVE); COLOR,URINE STRAW; GLUCOSE, URINE NEGATIVE (NEGATIVE); KETONES,URINE NEGATIVE (NEGATIVE); LEUKOCYTE ESTERASE,URINE NEGATIVE (NEGATIVE); NITRITE,URINE NEGATIVE (NEGATIVE); PROTEIN,URINE NEGATIVE (NEGATIVE); URINE SPECIFIC GRAVITY 1.006; UROBILINOGEN,URINE NEGATIVE mg/dL (<2.0)
[2019-08-30 10:20] LABS: ALBUMIN 4.1 g/dL (3.5-5.0); ALKALINE PHOSPHATASE 88 U/L (38-126); ANION GAP 10 (5-19); ASPARTATE AMINO TRANSFERASE 19 U/L (14-36); BILIRUBIN,DIRECT 0.1 mg/dL (0.0-0.4); BILIRUBIN,TOTAL 0.7 mg/dL (0.2-1.3); BLOOD UREA NITROGEN 12 mg/dL (7-20); CALCIUM 9.5 mg/dL (8.4-10.2); CARBON DIOXIDE 26 mmol/L (22-30); CHLORIDE 105 mmol/L (98-107); GLUCOSE 98 mg/dL (75-110); POTASSIUM 4.2 mmol/L (3.6-5.0); TOTAL PROTEIN 7.3 g/dL (6.3-8.2)
== END ==
LOC: LAB 09:21
PROVIDERS: ATTEND Internal Medicine Cardiovascular Disease
DX: I48.91 Unspecified atrial fibrillation (principal); I10 Essential (primary) hypertension; Z79.01 Long term (current) use of anticoagulants; Z79.899 Other long term (current) drug therapy
CPT/HCPCS: 36415; 80048; 80076; 81001; 83735; 84443; 85027; 85730

== ENCOUNTER 2019-09-27 17:16 | Emergency (ER) | payer MEDICARE, BC ==
--- NOTE | 2019-09-27 18:01 | ER Document Report ---
ED Medical Screen (RME) - General Chief Complaint: Chest Pressure Stated Complaint: CHEST PRESSURE Time Seen by Provider: 09/27/19 17:49 Primary Care Provider: FERNANDO ROTHMAN MD [Primary Care Provider] - Follow up as needed TRAVEL OUTSIDE OF THE [place] IN LAST 30 DAYS: No - HPI Notes: 09/27/19 18:01 84-year-old female to the emergency department from cardiology office with complaints of chest pain that is been ongoing for the past week. She is followed by Chani Moran at Dr. Rothman's office. Chani called and stated that the patient has been experiencing chest pain predominantly at night for the past week. The patient wears a Nitropatch throughout the day but takes it off at night. She has been noticing that she is requiring to take sublingual nitro at night because she does not have the patch on. She also has noticed a couple episodes of chest pain while during the day and has not had to take any sublingual nitro as well. Patient reports some bilateral lower leg edema. She had a heart cath in [place] in March 2019 and there was evidence for blockage but no intervention was performed. She had collateral arteries at that point. Patient denies current chest pain. She denies any shortness of breath. There is also a report of hallucinations. Patient states it is been going on for about a month but her daughter states for longerpossibly a year. She states t hat she often will see a woman in her is sits and looks up the window. She does not on this woman. There have been no changes to her medications recently. I performed a brief medical screening exam on the patient determined that she will need further evaluation and management by main side provider. I placed initial orders to help expedite her care. - Related Data Allergies/Adverse Reactions: Iodinated Contrast Media Allergy (Severe, Verified 04/05/19 09:52) Angioedema metformin [Metformin] Allergy (Severe, Verified 04/05/19 09:52) Diarrhea morphine Allergy (Verified 04/05/19 09:52) Iggxqtf-Ulk-Hwp Reductase Inhibitor Adverse Reaction (Intermediate, Verified 04/05/19 09:52) Stiffness in joints Past Medical History - Past Medical History Cardiac Medical History: Reports: Hx Congestive Heart Failure, Hx Coronary Artery Disease, Hx DVT - 1998, Hx Hypercholesterolemia, Hx Hypertension Denies: Hx Pulmonary Embolism Pulmonary Medical History: Denies: Hx Asthma, Hx COPD Neurological Medical History: Denies: Hx Seizures Endocrine Medical History: Reports: Hx Hypothyroidism. Denies: Hx Diabetes Mellitus Type 1, Hx Diabetes Mellitus Type 2, Hx Hyperthyroidism Renal/ Medical History: Denies: Hx Peritoneal Dialysis GI Medical History: Denies: Hx Cirrhosis, Hx Gastroesophageal Reflux Disease, Hx Hepatitis Musculoskeltal Medical History: Reports Hx Arthritis Skin Medical History: Denies Hx Eczema, Denies Hx Psoriasis Psychiatric Medical History: Denies: Hx Depression Infectious Medical History: Denies: Hx Hepatitis Past Surgical History: Reports: Hx Cardiac Catheterization - x4-5 years ago- [place] and "recently" @ [facility], Cardiac Surgery - 3 stents placed, Hx Cholecystectomy, Hx Coronary Artery Bypass Graft - March 2015, [facility], Coronary Stent - 4 total; last March 2015, around the time of her 3 vessel cabg, Hx Hysterectomy, Hx Orthopedic Surgery - bilat hip replacement - Immunizations Hx Diphtheria, Pertussis, Tetanus Vaccination: Yes Doctor's Discharge - Discharge Referrals: FERNANDO ROTHMAN MD [Primary Care Provider] - Follow up as needed
--- NOTE | 2019-09-27 19:36 | RADIOLOGY REPORT (SQ) ---
EXAM DESCRIPTION: CHEST 2 VIEWS COMPLETED DATE/TIME: 09/27/2019 7:12 pm REASON FOR STUDY: chest pain COMPARISON: 04/05/2019 EXAM PARAMETERS: NUMBER OF VIEWS: two views TECHNIQUE: Digital Frontal and Lateral radiographic views of the chest acquired. RADIATION DOSE: NA LIMITATIONS: none FINDINGS: LUNGS AND PLEURA: No opacities, masses or pneumothorax. No pleural effusion. MEDIASTINUM AND HILAR STRUCTURES: No masses or contour abnormalities. HEART AND VASCULAR STRUCTURES: The heart size is borderline. 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 HARDWARE: Sternotomy wires. OTHER: No other significant finding. IMPRESSION: Borderline cardiomegaly without pulmonary edema. Degenerative joint disease in the shou lders. TECHNICAL DOCUMENTATION: JOB ID: [id number] [employer]- All Rights Reserved Reading location - IP/workstation name: [email or web address]
[2019-09-27 20:19] LABS: ABSOLUTE BASOPHILS # (AUTO) 0.1 10^3/uL (0.0-0.2); ABSOLUTE EOSINOPHILS # (AUTO) 0.2 10^3/uL (0.0-0.6); ABSOLUTE MONOCYTES (AUTO) 0.6 10^3/uL (0.1-1.4); ABSOLUTE NEUT (AUTO) 3.6 10^3/uL (1.7-8.2); BASOPHILS % (AUTO) 0.9 % (0-2); EOSINOPHILS % (AUTO) 3.5 % (0-6); HEMATOCRIT 41.2 % (36.0-47.0); HEMOGLOBIN 14.2 g/dL (12.0-15.5); LYMPHOCYTES % (AUTO) 30.6 % (13-45); MEAN CORPUSCULAR HEMOGLOBIN 31.1 pg (27.0-33.4); MEAN CORPUSCULAR HGB CONC 34.4 g/dL (32.0-36.0); MEAN CORPUSCULAR VOLUME 91 fl (80-97); MONOCYTES % (AUTO) 8.8 % (3-13); PLATELET COUNT 206 10^3/uL (150-450); RED BLOOD COUNT 4.55 10^6/uL (3.72-5.28); RED CELL DISTRIBUTION WIDTH 14.2 % (11.5-14.0); SEGMENTED NEUTROPHILS % (AUTO) 56.2 % (42-78); TOTAL CELLS COUNTED % (AUTO) 100 %; WHITE BLOOD COUNT 6.4 10^3/uL (4.0-10.5)
[2019-09-27 20:28] LABS: INTERNATIONAL RATION (INR) 1.19; PARTIAL THROMBOPLASTIN TIME 31.9 SEC (23.5-35.8); PROTHROMBIN TIME 15.2 SEC (11.4-15.4)
[2019-09-27 20:30] LABS: APPEARANCE,URINE SLIGHTLY-CLOUDY; BILIRUBIN,URINE NEGATIVE (NEGATIVE); COLOR,URINE YELLOW; GLUCOSE, URINE NEGATIVE (NEGATIVE); KETONES,URINE NEGATIVE (NEGATIVE); LEUKOCYTE ESTERASE,URINE SMALL (NEGATIVE); NITRITE,URINE NEGATIVE (NEGATIVE); PROTEIN,URINE NEGATIVE (NEGATIVE); URINE SPECIFIC GRAVITY 1.014; UROBILINOGEN,URINE NEGATIVE mg/dL (<2.0)
[2019-09-27 20:39] LABS: ALBUMIN 4.3 g/dL (3.5-5.0); ALKALINE PHOSPHATASE 86 U/L (38-126); ANION GAP 9 (5-19); ASPARTATE AMINO TRANSFERASE 21 U/L (14-36); BILIRUBIN,DIRECT 0.2 mg/dL (0.0-0.4); BILIRUBIN,TOTAL 0.7 mg/dL (0.2-1.3); BLOOD UREA NITROGEN 12 mg/dL (7-20); CALCIUM 9.6 mg/dL (8.4-10.2); CARBON DIOXIDE 29 mmol/L (22-30); CHLORIDE 103 mmol/L (98-107); GLUCOSE 93 mg/dL (75-110); POTASSIUM 3.9 mmol/L (3.6-5.0); TOTAL PROTEIN 7.6 g/dL (6.3-8.2)
--- NOTE | 2019-09-27 22:35 | ER Document Report ---
ED General - General Chief Complaint: Chest Pressure Stated Complaint: CHEST PRESSURE Time Seen by Provider: 09/27/19 17:49 Primary Care Provider: FERNANDO ROTHMAN MD [Primary Care Provider] - Follow up as needed Notes: 84-year-old female with history of CABG and multiple stents presents with intermittent chest pressure for the past week. Patient states it is worse at night when she takes off her Nitropatch. Patient denies any associated dyspnea, nausea, vomiting, dizziness. Patient was seen by her nuclear equipment research engineer today and was sent over by the office for further evaluation in the ER. TRAVEL OUTSIDE OF THE [place] IN LAST 30 DAYS: No - Related Data Allergies/Adverse Reactions: Iodinated Contrast Media Allergy (Severe, Verified 04/05/19 09:52) Angioedema metformin [Metformin] Allergy (Severe, Verified 04/05/19 09:52) Diarrhea morphine Allergy (Verified 04/05/19 09:52) Qztwwce-Jrf-Ywb Reductase Inhibitor Adverse Reaction (Intermediate, Verified 04/05/19 09:52) Stiffness in joints Past Medical History - Social History Smoking Status: Never Smoker Frequency of alcohol use: None Drug Abuse: None Family History: Reviewed & Not Pertinent, Other Patient has suicidal ideation: No Patient has homicidal ideation: No - Past Medical History Cardiac Medical History: Reports: Hx Congestive Heart Failure, Hx Coronary Artery Disease, Hx DVT - 1997, Hx Hypercholesterolemia, Hx Hypertension Denies: Hx Pulmonary Embolism Pulmonary Medical History: Denies: Hx Asthma, Hx COPD Neurological Medical History: Denies: Hx Seizures Endocrine Medical History: Reports: Hx Hypothyroidism. Denies: Hx Diabetes Mellitus Type 1, Hx Diabetes Mellitus Type 2, Hx Hyperthyroidism Renal/ Medical History: Denies: Hx Peritoneal Dialysis GI Medical History: Denies: Hx Cirrhosis, Hx Gastroesophageal Reflux Disease, Hx Hepatitis Musculoskeletal Medical History: Reports Hx Arthritis Skin Medical History: Denies Hx Eczema, Denies Hx Psoriasis Psychiatric Medical History: Denies: Hx Depression Infectious Medical History: Denies: Hx Hepatitis Past Surgical History: Reports: Hx Cardiac Catheterization - x4-5 years ago- [place] and "recently" @ [place], Hx Cardiac Surgery - 3 stents placed, Hx Cholecystectomy, Hx Coronary Artery Bypass Graft - March 2015, [facility], Hx Coronary Stent - 4 total; last March 2015, around the time of her 3 vessel cabg, Hx Hysterectomy, Hx Orthopedic Surgery - bilat hip replacement - Immunizations Hx Diphtheria, Pertussis, Tetanus Vaccination: Yes Hx Pneumococcal Vaccination: 08/28/10 Physical Exam - Vital signs Vitals: Temp Pulse Resp BP Pulse Ox 98.1 F 53 L 20 148/63 H 95 09/27/19 17:41 09/27/19 17:41 09/27/19 17:41 09/27/19 17:41 09/27/19 17:41 Course - Re-evaluation Re-evalutation: 09/27/19 22:[address] Fernando Rothman who recommended discussing pt with Dr. Becker, coal hauler operator, who knows her well at [facility]. Discussed this with pt and pt's daughter. Pt is hesitant about receiving another cath. 09/27/19 22:40 09/27/19 22:48 Spoke with [facility] to page out to Dr. Mcgowan or whoever is coat ironer hand for him. 09/27/19 22:59 [facility] called back. Will attempt to get nuclear equipment research engineer on the line. Tagman currently in emergent procedure. Will call back once available. 09/28/19 00:20 Spoke to [facility] to speak to nuclear equipment research engineer there. 09/28/19 00:[address] Kenny Zavala, nuclear equipment research engineer, at [facility] who accepted pt for transfer. Pt is accepted to telemetry bed. [facility] will call back with bed assignment. - Vital Signs Vital signs: Temp Pulse Resp BP Pulse Ox 98.1 F 53 L 19 162/69 H 93 09/27/19 17:41 09/27/19 17:41 09/27/19 22:01 09/27/19 22:01 09/27/19 22:01 - Laboratory Result Diagrams: 09/27/19 19:45 09/27/19 19:45 Laboratory results interpreted by me: 09/27/19 09/27/19 19:45 19:45 RDW 14.2 H Ur Leukocyte Esterase SMALL H Discharge - Discharge Clinical Impression: Chest pain Qualifiers: Chest pain type: unspecified Qualified Code(s): R07.9 - Chest pain, unspecified Condition: Stable Disposition: OTHER Admitting Provider: Dr. Kenny Zavala at [facility] Unit Admitted: Telemetry Referrals: FERNANDO ROTHMAN MD [Primary Care Provider] - Follow up as needed
[2019-09-28 16:49] VITALS: BP 143/68
--- NOTE | 2019-09-28 16:50 | ER Document Report ---
Doctor's Note Notes: 09/28/19 16:50 Patient was ready for transport to [facility]. She initially presented with chest pain. I went to evaluate the patient, transport was at bedside. The patient had no chest pain, no difficulty breathing, no acute complaints or concerns. She is stable for transfer.
--- NOTE | 2019-09-28 23:32 | EKG REPORT ---
SEVERITY:- ABNORMAL ECG - SINUS RHYTHM ATRIAL PREMATURE COMPLEX LEFT BUNDLE BRANCH BLOCK : Confirmed by: Kelsey Multani 28-Sep-2019 23:30:56
--- NOTE | 2019-09-28 23:32 | EKG REPORT ---
SEVERITY:- ABNORMAL ECG - SINUS BRADYCARDIA LEFT BUNDLE BRANCH BLOCK : Confirmed by: Kelsey Multani 28-Sep-2019 23:31:41
== END 2019-09-28 17:00 | disposition other institution (70) ==
LOC: ER 17:16
DX: R07.89 Other chest pain (principal); I25.10 Atherosclerotic heart disease of native coronary artery without angina pectoris; I10 Essential (primary) hypertension; Z79.899 Other long term (current) drug therapy; Z95.1 Presence of aortocoronary bypass graft; Z95.5 Presence of coronary angioplasty implant and graft; Z91.041 Radiographic dye allergy status; Z88.8 Allergy status to other drugs, medicaments and biological substances; Z88.6 Allergy status to analgesic agent; Z88.5 Allergy status to narcotic agent
CPT/HCPCS: 36415; 71046; 80053; 81001; 83690; 84484; 85025; 85610; 85730; 93005; 93010; 99285

== ENCOUNTER 2019-10-09 06:21 | Emergency (ER) | payer MEDICARE, BC ==
--- NOTE | 2019-10-09 07:26 | RADIOLOGY REPORT (SQ) ---
Chest 2 view on 10/09/2019 at 7:17 AM CLINICAL INDICATION: Chest pain COMPARISON: 09/27/2019 FINDINGS: The patient is status post median sternotomy. Implanted device is noted in the left anterior chest wall. Degenerative changes and scoliosis is noted in the spine. Degenerative changes are noted in the bilateral shoulders. Minimal biapical scarring is noted. The lungs are otherwise clear. Cardiac, hilar and mediastinal contours are within normal limits. Vascular calcification is noted in the aorta. Coronary artery stent is noted. IMPRESSION: No acute disease.
--- NOTE | 2019-10-09 07:32 | EKG REPORT ---
SEVERITY:- ABNORMAL ECG - SINUS RHYTHM LEFT BUNDLE BRANCH BLOCK FIRST DEGREE AVB : Confirmed by: Galindo Rothman MD 09-Oct-2019 07:31:22
[2019-10-09 08:54] LABS: ABSOLUTE BASOPHILS # (AUTO) 0.1 10^3/uL (0.0-0.2); ABSOLUTE EOSINOPHILS # (AUTO) 0.2 10^3/uL (0.0-0.6); ABSOLUTE LYMPHOCYTES (AUTO) 1.3 10^3/uL (0.5-4.7); ABSOLUTE MONOCYTES (AUTO) 0.6 10^3/uL (0.1-1.4); ABSOLUTE NEUT (AUTO) 3.8 10^3/uL (1.7-8.2); BASOPHILS % (AUTO) 0.9 % (0-2); EOSINOPHILS % (AUTO) 3.2 % (0-6); HEMATOCRIT 40.9 % (36.0-47.0); HEMOGLOBIN 14.2 g/dL (12.0-15.5); LYMPHOCYTES % (AUTO) 21.5 % (13-45); MEAN CORPUSCULAR HEMOGLOBIN 31.8 pg (27.0-33.4); MEAN CORPUSCULAR HGB CONC 34.6 g/dL (32.0-36.0); MEAN CORPUSCULAR VOLUME 92 fl (80-97); MONOCYTES % (AUTO) 9.9 % (3-13); PLATELET COUNT 217 10^3/uL (150-450); RED BLOOD COUNT 4.46 10^6/uL (3.72-5.28); SEGMENTED NEUTROPHILS % (AUTO) 64.5 % (42-78); TOTAL CELLS COUNTED % (AUTO) 100 %; WHITE BLOOD COUNT 5.8 10^3/uL (4.0-10.5)
[2019-10-09 09:12] LABS: INTERNATIONAL RATION (INR) 1.18; PROTHROMBIN TIME 15.1 SEC (11.4-15.4)
[2019-10-09 09:13] LABS: ALKALINE PHOSPHATASE 103 U/L (38-126); ANION GAP 8 (5-19); ASPARTATE AMINO TRANSFERASE 20 U/L (14-36); BILIRUBIN,DIRECT 0.2 mg/dL (0.0-0.4); BILIRUBIN,TOTAL 0.4 mg/dL (0.2-1.3); BLOOD UREA NITROGEN 12 mg/dL (7-20); CALCIUM 9.3 mg/dL (8.4-10.2); CARBON DIOXIDE 29 mmol/L (22-30); CHLORIDE 102 mmol/L (98-107); CREATINE KINASE 32 U/L (30-135); GLUCOSE 97 mg/dL (75-110); POTASSIUM 4.8 mmol/L (3.6-5.0); TOTAL PROTEIN 7.1 g/dL (6.3-8.2)
[2019-10-09 09:24] LABS: CREATINE KINASE MB 0.65 ng/mL (<4.55)
[2019-10-09 09:25] LABS: TROPONIN I < 0.012 ng/mL
--- NOTE | 2019-10-09 10:14 | ER Document Report ---
ED General - General Chief Complaint: Chest Pain > 30 Stated Complaint: CHEST PAIN Time Seen by Provider: 10/09/19 09:49 Primary Care Provider: CARLY LEACH MD [Primary Care Provider] - Follow up as needed TRAVEL OUTSIDE OF THE [place] IN LAST 30 DAYS: No - HPI Notes: Patient is an 84-year-old female who presents to the emergency department for evaluation. Her and the son are the primary historians. Evidently the patient states she has had some pressure and bloating sensations, as well as a diffuse pain across her chest. She states that the belly pain is become rather regular, and she is had an increase in her pain since coming off the nitro door patch. She states that today she got a sharp jabbing pain in her chest as well. This happened twice. She states she felt slightly short of breath with these pains, but denies any associated nausea, diaphoresis, near syncope. The pain does not radiate. She took 3 nitroglycerin at home which she states helped after about 10 to 15 minutes. Shortly after that, the pain returned, so she presents to the ED for further evaluation. Patient was recently seen at [place]. She had a stent repaired. She has some medication changes. She was taken off the long-acting nitro, started on Eliquis, Plavix, Ranexa. She currently has a heart monitor in place to see if she needs to continue her Eliquis. - Related Data Allergies/Adverse Reactions: Iodinated Contrast Media Allergy (Severe, Verified 04/05/19 09:52) Angioedema metformin [Metformin] Allergy (Severe, Verified 04/05/19 09:52) Diarrhea morphine Allergy (Verified 04/05/19 09:52) Bhltvfa-Vix-Pgb Reductase Inhibitor Adverse Reaction (Intermediate, Verified 04/05/19 09:52) Stiffness in joints Home Medications: levothyroxyzine, eliquis, lisinopril, metoprolol, asa low dose, tramadol, plavix, vitamin d, renexa, tylenol prn, magnesium,. ropinirole, colace, lorazapam, Past Medical History - General Information source: Patient, Relative - Social History Smoking Status: Never Smoker Family History: Reviewed & Not Pertinent, Other Patient has suicidal ideation: No Patient has homicidal ideation: No - Past Medical History Cardiac Medical History: Reports: Hx Congestive Heart Failure, Hx Coronary Artery Disease, Hx DVT - 1998, Hx Hypercholesterolemia, Hx Hypertension Denies: Hx Pulmonary Embolism Pulmonary Medical History: Denies: Hx Asthma, Hx COPD Neurological Medical History: Denies: Hx Seizures Endocrine Medical History: Reports: Hx Hypothyroidism. Denies: Hx Diabetes Mellitus Type 1, Hx Diabetes Mellitus Type 2, Hx Hyperthyroidism Renal/ Medical History: Denies: Hx Peritoneal Dialysis GI Medical History: Denies: Hx Cirrhosis, Hx Gastroesophageal Reflux Disease, Hx Hepatitis Musculoskeletal Medical History: Reports Hx Arthritis Skin Medical History: Denies Hx Eczema, Denies Hx Psoriasis Psychiatric Medical History: Denies: Hx Depression Infectious Medical History: Denies: Hx Hepatitis Past Surgical History: Reports: Hx Cardiac Catheterization - x4-5 years ago- [place] and "recently" @ [facility], Cardiac Surgery - 3 stents placed, Hx Cholecystectomy, Hx Coronary Artery Bypass Graft - March 2015, [facility], Coronary Stent - 4 total; last March 2015, around the time of her 3 vessel cabg, Hx Hysterectomy, Hx Orthopedic Surgery - bilat hip replacement - Immunizations Hx Diphtheria, Pertussis, Tetanus Vaccination: Yes Hx Pneumococcal Vaccination: 08/28/10 Review of Systems - Review of Systems Cardiovascular: See HPI Gastrointestinal: See HPI -: Yes All other systems reviewed and negative Physical Exam - Vital signs Vitals: Temp Pulse Resp BP Pulse Ox 97.9 F 58 L 18 150/61 H 97 10/09/19 06:39 10/09/19 06:39 10/09/19 06:39 10/09/19 06:39 10/09/19 06:39 - Notes Notes: This is an 84-year-old female who appears her stated age, in no acute distress. Vital signs reviewed, please refer to chart. Head is normocephalic, atraumatic. Pupils equal round, reactive to light. Neck is supple without meningismus. Heart is regular rate and rhythm. Lungs are clear to auscultation bilaterally. Abdomen is soft, nontender, normoactive bowel sounds throughout. Extremities without cyanosis, clubbing. Posterior calves are nontender. She does have +1 pitting edema to the tibial regions, stable per patient. Peripheral pulses are equal. Skin is warm and dry. Patient is awake, alert, neurological exam is nonfocal. Course - Re-evaluation Re-evalutation: 10/09/19 10:35 Patient presents to the emergency department for evaluation. She has had ongoing and intermittent chest pain for about a week, since her nitroglycerin patch was removed. It certainly seems to happen more at night, which again is w hen her patches were removed, but is more indicative of the possibility of GI being the etiology. At this point, the patient is comfortable. She is significantly hypertensive, but she is not taking any of her morning medications. She is comfortable. She is told she can take her morning medications. Her first troponin was completely undetectable. Second troponin is ordered. The patient is stable, we will continue to monitor. 10/09/19 13:13 Patient remained stable. She does not have any belly or chest pain at this time. Her second set of cardiac enzymes is undetectable. At this point I do have a stronger suspicion for a GI etiology than cardiac. Certainly, it could be the changes in her medications as well. I encouraged her to discuss this with her primary care provider as well as cardiology. In the meantime, I will go ahead and place the patient on an H2 nancy to see if that helps her with her symptoms. If she has any changes or worsening she should return immediately to the ER. Patient's daughter and son both voiced understanding, as did the patient, and she was discharged. - Vital Signs Vital signs: Temp Pulse Resp BP Pulse Ox 97.9 F 58 L 16 157/60 H 95 10/09/19 06:39 10/09/19 06:39 10/09/19 12:01 10/09/19 12:01 10/09/19 12:01 - Laboratory Result Diagrams: 10/09/19 08:43 10/09/19 08:43 - Diagnostic Test Radiology reviewed: Reports reviewed Radiology results interpreted by me: 10/09/19 10:35 Chest X-Ray 10/09/19 00:00 IMPRESSION: No acute disease. - EKG Interpretation by Me Additional EKG results interpreted by me: 10/09/19 10:36 Sinus bradycardia with a rate of 57 bpm. Left bundle branch block. No change compared to prior study. Discharge - Discharge Clinical Impression: Upper abdominal pain Chest pain Qualifiers: Chest pain type: unspecified Qualified Code(s): R07.9 - Chest pain, unspecified Condition: Stable Disposition: HOME, SELF-CARE Instructions: Abdominal Pain ([facility]), Chest Pain of Unclear Cause ([facility]) Additional Instructions: No clear cause was found for your pain today. Your EKG is unchanged. Your blood work that evaluates your heart was unremarkable. Please start Pepcid at night, 1 hour prior to bedtime, to see if this helps your symptoms. Return to the emergency department for worsening or new concerning symptoms of any sort. Referrals: CARLY LEACH MD [Primary Care Provider] - Follow up as needed
[2019-10-09 13:55] VITALS: BP 170/66
== END 2019-10-09 13:55 | disposition home or self-care (01) ==
LOC: ER 06:21
DX: R10.10 Upper abdominal pain, unspecified (principal); R07.9 Chest pain, unspecified; R06.02 Shortness of breath; I50.9 Heart failure, unspecified; I25.10 Atherosclerotic heart disease of native coronary artery without angina pectoris; I11.0 Hypertensive heart disease with heart failure; E78.00 Pure hypercholesterolemia, unspecified; E03.9 Hypothyroidism, unspecified; I44.7 Left bundle-branch block, unspecified; Z86.718 Personal history of other venous thrombosis and embolism; Z90.49 Acquired absence of other specified parts of digestive tract; Z79.02 Long term (current) use of antithrombotics/antiplatelets
CPT/HCPCS: 36415; 71046; 80053; 82550; 82553; 84484; 85025; 85610; 93005; 93010; 99285

== ENCOUNTER 2019-11-04 07:42 | Day surgery (SDC) | payer MEDICARE, BC ==
[2019-11-04] MEDS ORDERED: PROPOFOL INJ 200 MG/20 ML VIAL IV ONE (07:46)
[2019-11-04 09:02] VITALS: BP 153/59
--- NOTE | 2019-11-04 12:22 | Operative Report ---
Operative Report DATE OF SURGERY: 11/04/19 Operative Report: The risks benefits and alternatives of the procedure explained to the patient in detail and informed consent is obtained.A GIF Olympus video scope was inserted into the patient's mouth and hypopharynx ,the esophagus is identified intubated and insufflated, the scope was then advanced through the esophagus stomach and duodenum ,retroflexion maneuver is done, the esophagus stomach and first and second portions of the duodenum examined PREOPERATIVE DIAGNOSIS: Possible noncardiac chest pain POSTOPERATIVE DIAGNOSIS: Nonerosive gastroesophageal reflux disease OPERATION: Diagnostic EGD SURGEON: PHILLIP TATUM ANESTHESIA: LMAC TISSUE REMOVED OR ALTERED: None. COMPLICATIONS: None. ESTIMATED BLOOD LOSS: None. INTRAOPERATIVE FINDINGS: As noted above. PROCEDURE: Patient tolerated the procedure well. No immediate postprocedure complications are noted. Patient is discharged in good condition. Discharge date 11/04/2019. Discharge diet: Regular. Discharge activity: Regular. 2 to 3-week follow-up to discuss findings. Patient is instructed call the office or proceed to the emergency room should there be any further problems or questions.
== END 2019-11-04 09:05 | disposition home or self-care (01) ==
LOC: END 07:42
PROVIDERS: ATTEND Internal Medicine Gastroenterology
DX: R07.89 Other chest pain (principal); K21.9 Gastro-esophageal reflux disease without esophagitis; I10 Essential (primary) hypertension; E11.9 Type 2 diabetes mellitus without complications; Z88.8 Allergy status to other drugs, medicaments and biological substances; Z79.01 Long term (current) use of anticoagulants; Z79.82 Long term (current) use of aspirin; Z79.899 Other long term (current) drug therapy
CPT/HCPCS: 43235; 82962; 00731; J2704; 731

== ENCOUNTER → 2019-11-15 | Outpatient (CLI) | payer MEDICARE, BC ==
[2019-11-15 09:57] LABS: HEMATOCRIT 41.5 % (36.0-47.0); HEMOGLOBIN 14.4 g/dL (12.0-15.5); MEAN CORPUSCULAR HGB CONC 34.7 g/dL (32.0-36.0); MEAN CORPUSCULAR VOLUME 92 fl (80-97); PLATELET COUNT 209 10^3/uL (150-450); RED BLOOD COUNT 4.49 10^6/uL (3.72-5.28); RED CELL DISTRIBUTION WIDTH 13.5 % (11.5-14.0); WHITE BLOOD COUNT 6.2 10^3/uL (4.0-10.5)
[2019-11-15 10:39] LABS: ALBUMIN 4.3 g/dL (3.5-5.0); ALKALINE PHOSPHATASE 95 U/L (38-126); ASPARTATE AMINO TRANSFERASE 21 U/L (14-36); BILIRUBIN,DIRECT 0.3 mg/dL (0.0-0.4); BILIRUBIN,TOTAL 0.6 mg/dL (0.2-1.3); CHOLESTEROL 139.75 mg/dL (0-200); TOTAL PROTEIN 7.5 g/dL (6.3-8.2); TRIGLYCERIDES 148 mg/dL (<150)
[2019-11-15 10:42] LABS: ANION GAP 11 (5-19); BLOOD UREA NITROGEN 15 mg/dL (7-20); CALCIUM 9.7 mg/dL (8.4-10.2); CARBON DIOXIDE 25 mmol/L (22-30); CHLORIDE 103 mmol/L (98-107); GLUCOSE 103 mg/dL (75-110); POTASSIUM 4.6 mmol/L (3.6-5.0)
[2019-11-15 10:51] LABS: DIRECT LDL 65 mg/dL (<100)
[2019-11-15 11:00] LABS: ALBUMIN 4.3 g/dL (3.5-5.0); ALKALINE PHOSPHATASE 95 U/L (38-126); ASPARTATE AMINO TRANSFERASE 21 U/L (14-36); BILIRUBIN,DIRECT 0.3 mg/dL (0.0-0.4); BILIRUBIN,TOTAL 0.6 mg/dL (0.2-1.3); TOTAL PROTEIN 7.5 g/dL (6.3-8.2)
[2019-11-15 11:19] LABS: APPEARANCE,URINE CLEAR; BILIRUBIN,URINE NEGATIVE (NEGATIVE); COLOR,URINE YELLOW; GLUCOSE, URINE NEGATIVE (NEGATIVE); KETONES,URINE NEGATIVE (NEGATIVE); LEUKOCYTE ESTERASE,URINE SMALL (NEGATIVE); NITRITE,URINE NEGATIVE (NEGATIVE); PROTEIN,URINE NEGATIVE (NEGATIVE); URINE SPECIFIC GRAVITY 1.011; UROBILINOGEN,URINE NEGATIVE mg/dL (<2.0)
== END ==
LOC: OD 09:05
PROVIDERS: ATTEND Physician Assistant
DX: E78.2 Mixed hyperlipidemia (principal); I48.91 Unspecified atrial fibrillation; Z79.01 Long term (current) use of anticoagulants; Z79.899 Other long term (current) drug therapy
CPT/HCPCS: 36415; 80048; 80061; 80076; 81001; 83735; 85027; 85730; 87070

== ENCOUNTER → 2020-01-03 | Outpatient (CLI) | payer MEDICARE, BC | LOC: OD 11:59 | PROVIDERS: ATTEND Physician Assistant | DX: I10 Essential (primary) hypertension (principal); Z79.899 Other long term (current) drug therapy; Z53.8 Procedure and treatment not carried out for other reasons ==

== ENCOUNTER → 2020-01-13 | Outpatient (CLI) | payer MEDICARE, BC ==
[2020-01-13 12:58] LABS: ANION GAP 9 (5-19); BLOOD UREA NITROGEN 16 mg/dL (7-20); CARBON DIOXIDE 23 mmol/L (22-30); CHLORIDE 103 mmol/L (98-107); GLUCOSE 110 mg/dL (75-110); POTASSIUM 4.5 mmol/L (3.6-5.0)
== END ==
LOC: OD 11:43
PROVIDERS: ATTEND Physician Assistant
DX: I10 Essential (primary) hypertension (principal); Z79.899 Other long term (current) drug therapy
CPT/HCPCS: 36415; 80048

== ENCOUNTER → 2020-02-07 | Outpatient (CLI) | payer MEDICARE, BC ==
[2020-02-07 10:13] LABS: HEMATOCRIT 42.8 % (36.0-47.0); HEMOGLOBIN 14.8 g/dL (12.0-15.5); MEAN CORPUSCULAR HEMOGLOBIN 32.4 pg (27.0-33.4); MEAN CORPUSCULAR HGB CONC 34.6 g/dL (32.0-36.0); MEAN CORPUSCULAR VOLUME 94 fl (80-97); PLATELET COUNT 219 10^3/uL (150-450); RED BLOOD COUNT 4.57 10^6/uL (3.72-5.28); WHITE BLOOD COUNT 4.8 10^3/uL (4.0-10.5)
[2020-02-07 10:22] LABS: APPEARANCE,URINE CLEAR; BILIRUBIN,URINE NEGATIVE (NEGATIVE); COLOR,URINE YELLOW; GLUCOSE, URINE NEGATIVE (NEGATIVE); KETONES,URINE NEGATIVE (NEGATIVE); LEUKOCYTE ESTERASE,URINE NEGATIVE (NEGATIVE); NITRITE,URINE NEGATIVE (NEGATIVE); PROTEIN,URINE NEGATIVE (NEGATIVE); URINE SPECIFIC GRAVITY 1.009; UROBILINOGEN,URINE NEGATIVE mg/dL (<2.0)
[2020-02-07 10:45] LABS: ALBUMIN 4.3 g/dL (3.5-5.0); ALKALINE PHOSPHATASE 89 U/L (38-126); ANION GAP 9 (5-19); ASPARTATE AMINO TRANSFERASE 23 U/L (14-36); BILIRUBIN,TOTAL 0.5 mg/dL (0.2-1.3); BLOOD UREA NITROGEN 15 mg/dL (7-20); CALCIUM 9.6 mg/dL (8.4-10.2); CARBON DIOXIDE 25 mmol/L (22-30); CHLORIDE 104 mmol/L (98-107); GLUCOSE 101 mg/dL (75-110); POTASSIUM 4.5 mmol/L (3.6-5.0); TOTAL PROTEIN 7.3 g/dL (6.3-8.2)
[2020-02-07 14:57] LABS: CHOLESTEROL 145.65 mg/dL (0-200); TRIGLYCERIDES 145 mg/dL (<150)
[2020-02-07 15:09] LABS: DIRECT LDL 73 mg/dL (<100)
== END ==
LOC: OD 09:37
PROVIDERS: ATTEND Physician Assistant
DX: E78.2 Mixed hyperlipidemia (principal); I48.91 Unspecified atrial fibrillation; Z79.01 Long term (current) use of anticoagulants; Z79.899 Other long term (current) drug therapy
CPT/HCPCS: 36415; 80048; 80061; 80076; 81001; 82272; 85027; 85730

== ENCOUNTER → 2020-05-08 | Outpatient (CLI) | payer MEDICARE, BC ==
[2020-05-08 11:37] LABS: HEMATOCRIT 40.5 % (36.0-47.0); HEMOGLOBIN 14.2 g/dL (12.0-15.5); MEAN CORPUSCULAR HEMOGLOBIN 32.5 pg (27.0-33.4); MEAN CORPUSCULAR HGB CONC 34.9 g/dL (32.0-36.0); MEAN CORPUSCULAR VOLUME 93 fl (80-97); PLATELET COUNT 218 10^3/uL (150-450); RED BLOOD COUNT 4.36 10^6/uL (3.72-5.28); RED CELL DISTRIBUTION WIDTH 13.2 % (11.5-14.0); WHITE BLOOD COUNT 5.1 10^3/uL (4.0-10.5)
[2020-05-08 11:44] LABS: APPEARANCE,URINE CLEAR; BILIRUBIN,URINE NEGATIVE (NEGATIVE); COLOR,URINE YELLOW; GLUCOSE, URINE NEGATIVE (NEGATIVE); KETONES,URINE NEGATIVE (NEGATIVE); LEUKOCYTE ESTERASE,URINE NEGATIVE (NEGATIVE); NITRITE,URINE NEGATIVE (NEGATIVE); PROTEIN,URINE NEGATIVE (NEGATIVE); UROBILINOGEN,URINE NEGATIVE mg/dL (<2.0)
[2020-05-08 12:11] LABS: ALBUMIN 4.3 g/dL (3.5-5.0); ALKALINE PHOSPHATASE 74 U/L (38-126); ANION GAP 8 (5-19); ASPARTATE AMINO TRANSFERASE 22 U/L (14-36); BILIRUBIN,DIRECT 0.2 mg/dL (0.0-0.4); BILIRUBIN,TOTAL 0.6 mg/dL (0.2-1.3); BLOOD UREA NITROGEN 14 mg/dL (7-20); CALCIUM 9.5 mg/dL (8.4-10.2); CARBON DIOXIDE 24 mmol/L (22-30); CHLORIDE 104 mmol/L (98-107); GLUCOSE 103 mg/dL (75-110); POTASSIUM 4.8 mmol/L (3.6-5.0); TOTAL PROTEIN 6.8 g/dL (6.3-8.2)
== END ==
LOC: OD 10:13
PROVIDERS: ATTEND Physician Assistant
DX: I48.91 Unspecified atrial fibrillation (principal); Z79.01 Long term (current) use of anticoagulants; Z79.899 Other long term (current) drug therapy
CPT/HCPCS: 36415; 80048; 80076; 81001; 82272; 85027; 85730

== ENCOUNTER → 2020-05-19 | Outpatient (CLI) | payer MEDICARE, BC ==
[2020-05-19 11:12] LABS: CHOLESTEROL 139.56 mg/dL (0-200); TRIGLYCERIDES 161 mg/dL (<150)
[2020-05-19 11:23] LABS: DIRECT LDL 62 mg/dL (<100)
[2020-05-19 11:30] LABS: VLDL CHOLESTEROL 32.2 mg/dL (10-31)
== END ==
LOC: OD 09:40
PROVIDERS: ATTEND Physician Assistant
DX: E55.9 Vitamin D deficiency, unspecified (principal); E83.41 Hypermagnesemia; I48.91 Unspecified atrial fibrillation; E78.2 Mixed hyperlipidemia
CPT/HCPCS: 36415; 80061; 82306; 83735; 84443

== ENCOUNTER → 2020-06-19 | Outpatient (CLI) | payer MEDICARE, BC ==
--- NOTE | 2020-06-19 13:09 | ER RDC ASSESSMENT REPORT ---
Intake - In the Last 14 days Have you traveled outside [place]?: No Have you been in close contact with someone CONFIRMED: No Worked in Healthcare?: No - Symptoms Subjective Fever([place] feverish): No Chills: No Muscule Aches: No Runny Nose: No Sore Throat: No Cough (New or worsening chronic cough): No Shortness of breath: No Nausea or Vomiting: No Headache: No Abdominal Pain: No Diarrhea(3 or more loose stools in last 24 hours): No - Do you have any of the following Chronic lung disease: Asthma or emphysema or COPD: No Cystic Fibrosis: No Diabetes: Yes High Blood Pressure: Yes Cardiovascular Disease: Yes Chronic Kidney Disease: No Chronic Liver Disease: No Chronic blood disorder like Sickle Cell Disease: No Weak immune system due to disease or medication: No Neurologic condition that limits movement: No Developmental delay - Moderate to Severe: No Recent (within past 2 weeks) or current : No Morbid Obesity (>100 pounds over ideal weight): No - Objective Temperature: 98 F Pulse Rate: 51 Respiratory Rate: 15 Blood Pressure: 145/65 O2 Sat by Pulse Oximetry: 15 Objective: Patient is a well-appearing 85-year-old female, who presents today for COVID-19 screening. Disposition: Home; Selfcare General - General Stated Complaint: COVID-19 screening Mode of Arrival: Ambulatory Information source: Patient Notes: The patient was evaluated during the global COVID-19 pandemic. That diagnosis was suspected/considered upon initial presentation. Their evaluation, treatment, and testing was consistent with current guidelines for patients who present with complaints or symptoms that may be related to COVID-19. - HPI Patient complains to provider of: Asymptomatic, no complaints Quality of pain: No pain Severity: None Pain Level: Denies Associated symptoms: None Exacerbated by: Denies Relieved by: Denies Similar symptoms previously: No Recently seen / treated by doctor: No - Related Data Allergies/Adverse Reactions: Iodinated Contrast Media Allergy (Severe, Verified 04/05/19 09:52) Angioedema metformin [Metformin] Allergy (Severe, Verified 04/05/19 09:52) Diarrhea morphine Allergy (Verified 04/05/19 09:52) Mypmpeo-Cmu-Vii Reductase Inhibitor Adverse Reaction (Intermediate, Verified 04/05/19 09:52) Stiffness in joints Past Medical History - Social History Smoking Status: Never Smoker Cigarette use (# per day): No Chew tobacco use (# tins/day): No Smoking Education Provided: No Frequency of alcohol use: None Drug Abuse: None Occupation: Retired Lives with: Family Family History: Reviewed & Not Pertinent, Other Patient has suicidal ideation: No Patient has homicidal ideation: No - Past Medical History Cardiac Medical History: Reports: Hx Congestive Heart Failure, Hx Coronary Artery Disease - 7 HEART CATHS, Hx DVT - 1997, Hx Hypercholesterolemia, Hx Hypertension Denies: Hx Pulmonary Embolism Comment Only: Hx Heart Attack - HEART FAILURE, 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 Denies: Hx Diabetes Mellitus Type 1, Hx Diabetes Mellitus Type 2, Hx Hyperthyroidism Renal/ Medical History: Denies: Hx Peritoneal Dialysis GI Medical History: Denies: Hx Cirrhosis, Hx Gastroesophageal Reflux Disease, Hx Hepatitis Musculoskeletal Medical History: Reports Hx Arthritis Skin Medical History: Denies Hx Eczema, Denies Hx Psoriasis Psychiatric Medical History: Denies: Hx Depression Infectious Medical History: Denies: Hx Hepatitis Past Surgical History: Reports: Hx Cardiac Catheterization - x4-5 years ago- [place] and "recently" @ [place], Cardiac Surgery - 3 stents placed, Hx Cholecystectomy, Hx Coronary Artery Bypass Graft - March 2015, [facility], Coronary Stent - 4 total; last March 2015, around the time of her 3 vessel cabg, Hx Hysterectomy, Hx Orthopedic Surgery - bilat hip replacement Physical Exam - General General appearance: Appears well In distress: None Notes: PHYSICAL EXAMINATION: GENERAL: Well-appearing and in no acute distress. HEAD: Atraumatic, normocephalic. EYES: Sclera anicteric, conjunctiva are normal. ENT: Nares patent. Moist mucous membranes. NECK: Normal range of motion, supple without lymphadenopathy. LUNGS: CTAB and equal. No wheezes rales or rhonchi. HEART: Regular rate and rhythm without murmurs. ABDOMEN: Soft, nontender, normal bowel sounds, no guarding. EXTREMITIES: Normal range of motion, no pitting edema. No cyanosis. BACK: No midline or CVA tenderness. NEUROLOGICAL: Cranial nerves grossly intact. Normal speech. PSYCH: Normal mood and affect. Calm, cooperative, and answers questions appropriately. SKIN: Warm, Dry, normal color and turgor, no obvious lesions or rash noted. Diagnostic Results Laboratory Results: Patient advised at this time they are considered a Person Under Investigation (PUI) for the COVID-19 Coronavirus. They have been made aware it is currently taking 3 to 5 days to receive their results. Patient advised [facility] Department will call to notify them of a POSITIVE result, and an [facility] service desk team lead will call to notify them of a NEGATIVE result. Patient Education/Counseling Counseling/Education: Patient presents with upper respiratory symptoms worrisome for possible COVID- 19. Patient does not have symptoms worrisome as an emergency such as difficulty breathing, shortness of breath, chest pain, pressure, confusion or cyanosis. Patient appears suitable for discharge. Patient's vital signs are stable and patient is nontoxic in appearance. Good return precautions have been discussed with patient, patient verbalized understanding and is agreeable with discharge plan of care at this time. Patient provided COVID-19 discharge instructions to include: As a person under investigation for COVID-19, the [facility] and Human Services, division of public health advises you to adhere to the following guidance until your test results are reported to you. If your test result is positive, you will receive additional information from your provider and your local health department at that time. Remain at home until you are cleared by the health provider or public health authorities. Keep a log of visitors to your home, notify any visitors to your home of your isolation status. If you plan to move to a new address or leave the [facility], notify the local health department in your County. Call your doctor or seek care if you have an urgent medical need. Before seeking medical care, call ahead to get instructions from the provider before arriving at the medical office clinic or hospital. Notify them that you are being tested for the virus that causes COVID-19 so that arrangements can be made, as necessary, to prevent transmission to others in the healthcare setting. Next, notify the local health department in your county. If a medical emergency arises and you need to call 911, inform dispatch and the first responders that you are being tested for the virus that causes COVID-19. Next, notify the local health department in your county. Guidance for worsening S/SX: For worsening symptoms, patient has been advised to contact their Primary Care Provider, or go to the nearest Emergency Department. [facility] Discharge - Discharge Clinical Impression: COVID-19 Screening URI (upper respiratory infection) Qualifiers: URI type: unspecified URI Qualified Code(s): J06.9 - Acute upper respiratory infection, unspecified Condition: Stable Disposition: Home; Selfcare
[2020-06-19 13:10] VITALS: BP 145/65
== END ==
LOC: RDC 12:13
PROVIDERS: ATTEND Nurse Practitioner Family
DX: J06.9 Acute upper respiratory infection, unspecified (principal); Z20.828 Contact with and (suspected) exposure to other viral communicable diseases; I10 Essential (primary) hypertension; I25.10 Atherosclerotic heart disease of native coronary artery without angina pectoris; E78.00 Pure hypercholesterolemia, unspecified; E03.9 Hypothyroidism, unspecified; I25.2 Old myocardial infarction; Z88.6 Allergy status to analgesic agent; Z88.8 Allergy status to other drugs, medicaments and biological substances; Z91.041 Radiographic dye allergy status
CPT/HCPCS: U0003; C9803; 87635

== ENCOUNTER → 2020-08-04 | Outpatient (CLI) | payer MEDICARE, BC ==
[2020-08-04 11:00] LABS: HEMATOCRIT 41.5 % (36.0-47.0); HEMOGLOBIN 14.2 g/dL (12.0-15.5); MEAN CORPUSCULAR HEMOGLOBIN 31.6 pg (27.0-33.4); MEAN CORPUSCULAR HGB CONC 34.2 g/dL (32.0-36.0); MEAN CORPUSCULAR VOLUME 92 fl (80-97); PLATELET COUNT 209 10^3/uL (150-450); RED BLOOD COUNT 4.49 10^6/uL (3.72-5.28); RED CELL DISTRIBUTION WIDTH 13.1 % (11.5-14.0); WHITE BLOOD COUNT 5.7 10^3/uL (4.0-10.5)
[2020-08-04 11:22] LABS: ALBUMIN 4.2 g/dL (3.5-5.0); ALKALINE PHOSPHATASE 74 U/L (38-126); ANION GAP 10 (5-19); ASPARTATE AMINO TRANSFERASE 26 U/L (14-36); BILIRUBIN,DIRECT 0.1 mg/dL (0.0-0.4); BILIRUBIN,TOTAL 0.6 mg/dL (0.2-1.3); BLOOD UREA NITROGEN 12 mg/dL (7-20); CARBON DIOXIDE 22 mmol/L (22-30); CHLORIDE 106 mmol/L (98-107); GLUCOSE 106 mg/dL (75-110); POTASSIUM 4.5 mmol/L (3.6-5.0); TOTAL PROTEIN 7.1 g/dL (6.3-8.2)
[2020-08-04 11:23] LABS: CALCIUM 9.7 mg/dL (8.4-10.2)
[2020-08-04 11:31] LABS: APPEARANCE,URINE CLEAR; BILIRUBIN,URINE NEGATIVE (NEGATIVE); COLOR,URINE YELLOW; GLUCOSE, URINE NEGATIVE (NEGATIVE); KETONES,URINE NEGATIVE (NEGATIVE); LEUKOCYTE ESTERASE,URINE TRACE (NEGATIVE); NITRITE,URINE NEGATIVE (NEGATIVE); PROTEIN,URINE NEGATIVE (NEGATIVE); URINE SPECIFIC GRAVITY 1.012; UROBILINOGEN,URINE NEGATIVE mg/dL (<2.0)
== END ==
LOC: OD 09:55
PROVIDERS: ATTEND Physician Assistant
DX: I48.91 Unspecified atrial fibrillation (principal); Z79.01 Long term (current) use of anticoagulants; Z79.899 Other long term (current) drug therapy
CPT/HCPCS: 36415; 80048; 80076; 81001; 85027; 85730